=== PATIENT | male | born 1930 | race Caucasian/White ===

== ENCOUNTER 2016-11-24 19:47 | Inpatient (IN) | payer MEDICARE, MEDICAID ==
[~2016-11-24] VITALS: Ht 157.5 cm; Wt 54.9 kg
--- NOTE | 2016-11-24 20:09 | NUR ---
Pt brought in by van from facility for medical clearance and psych evaluation with possible admission to MHU. Pt calm and cooperative, answering questions appropriately at this time, following simple comands. No obvious signs of distress at this time. Pt resting in position of comfort for self. Awaiting further eval.
--- NOTE | 2016-11-24 20:20 | NUR ---
Dr. Temple at bedside with frequency checker
[2016-11-24 20:40] LABS: BASOPHILS # (AUTO) 0.3 K/uL (0.0-8.0); BASOPHILS % (AUTO) 1.8 % (0.0-2.0); EOSINOPHILS # (AUTO) 0.2 K/uL (0.0-0.7); EOSINOPHILS % (AUTO) 1.1 % (0.0-7.0); HEMATOCRIT 34.3 % (40-50); HEMOGLOBIN 11.3 G/DL (14.0-18.0); LYMPHOCYTES # (AUTO) 2.3 K/UL (0.8-4.8); LYMPHOCYTES % (AUTO) 14.1 % (20.5-51.5); MEAN CORPUSCULAR HEMOGLOBIN 28.5 UUG (27.0-31.0); MEAN CORPUSCULAR HGB CONC 33 g/dL (32.0-37.0); MEAN CORPUSCULAR VOLUME 86.2 FL (82.0-92.0); MONOCYTES # (AUTO) 0.9 K/UL (0.1-1.30); MONOCYTES % (AUTO) 5.2 % (0.0-11.0); NEUTROPHILS # (AUTO) 12.9 K/UL (1.8-8.9); NEUTROPHILS % (AUTO) 77.8 % (38.5-71.5); PLATELET COUNT (AUTO) 272 K/UL (150-450); RED BLOOD CELL COUNT(AUTO) 3.97 MIL/UL (4.7-6.1); WHITE BLOOD COUNT (AUTO) 16.6 K/UL (4.0-11.2)
[2016-11-24 20:41] LABS: *BILIRUBIN,URIN NEGATIVE (NEGATIVE); *BLOOD, URINE Trace-intact (NEGATIVE); *CLARITY,URINE CLEAR (CLEAR); *COLOR,URINE YELLOW (YELLOW); *KETONES,URINE NEGATIVE (NEGATIVE); *PROTEIN,URINE 1+ (NEGATIVE); *UROBILINOGEN,URINE 0.2 E.U./dl (NORMAL); LEUKOCYTE ESTERASE ,URINE NEGATIVE (NEGATIVE); NITRITE, URINE NEGATIVE (NEGATIVE); PH,URINE 6.5 (5.0-8.0)
[2016-11-24 20:44] LABS: UGLUCOSE 2+ (NEGATIVE)
[2016-11-24 20:48] LABS: BACTERIA,URINE FEW /HPF (NONE SEEN); CARBON DIOXIDE 28 mmol/L (21-32); CHLORIDE 103 mmol/L (98-107); POTASSIUM 4.9 mmol/L (3.5-5.1); RBC,URINE 0-3 /HPF (0-3); SQUAMOUS EPITHELIAL CELL,UR FEW /HPF (NONE SEEN); UREA NITROGEN, BLOOD 28 mg/dL (7-18); WBC,URINE 0-3 /HPF (0-3)
[2016-11-24] MEDS ORDERED: ACET325C PO (20:49)
[2016-11-24] MEDS ORDERED: FINA5TAB11 PO (20:49)
[2016-11-24] MEDS ORDERED: METF500T4 PO (20:49)
[2016-11-24] MEDS ORDERED: GLIP5TAB3 PO (20:49)
[2016-11-24] MEDS ORDERED: DEXT15DR6 OP (20:49)
[2016-11-24] MEDS ORDERED: MIRT15TA7 PO (20:49)
[2016-11-24] MEDS ORDERED: CARV3.122 PO (20:49)
[2016-11-24] MEDS ORDERED: BISA10SU12 RC (20:49)
[2016-11-24] MEDS ORDERED: DONE5TAB34 PO (20:49)
[2016-11-24] MEDS ORDERED: SENN-167 PO (20:49)
[2016-11-24] MEDS ORDERED: [UNRECOGNIZED DRUG - CODE] PO (20:49)
[2016-11-24] MEDS ORDERED: LISI-603 PO (20:49)
[2016-11-24] MEDS ORDERED: ASPI81TA31 PO (20:49)
[2016-11-24] MEDS ORDERED: BLOO-360 IN (20:49)
[2016-11-24] MEDS ORDERED: ATOR40TA PO (20:49)
[2016-11-24] MEDS ORDERED: MAGN400O6 PO (20:49)
[2016-11-24 20:52] LABS: GLUCOSE 375 mg/dL (74-106)
[2016-11-24 20:56] LABS: ETHANOL < 3 MG/DL (0-0)
[2016-11-24 20:57] LABS: *AMPHETAMINE, URINE NEGATIVE (NEGATIVE); *BARBITURATE, URINE NEGATIVE (NEGATIVE); *CANNABINOID, URINE NEGATIVE (NEGATIVE); *COCCAINE, URINE NEGATIVE (NEGATIVE); *OPIATE, URINE NEGATIVE (NEGATIVE); *PHENCYCLIDINE SCREEN,URINE NEGATIVE (NEGATIVE)
[2016-11-24] MEDS ORDERED: IV NORMAL SALINE 500 ML IV ONE (20:57)
[2016-11-24] MEDS ORDERED: INSULIN REGULAR, HUMAN 1,000 UNITS/10 ML VIAL IV ONE (21:00)
[2016-11-24 21:06] LABS: ACETAMINOPHEN < 2.0 ug/mL (10-30); ALANINE AMINOTRANSFERASE 17 U/L (16-63); ALKALINE PHOSPHATASE 81 U/L (50-136); ASPARTATE AMINOTRANSFERASE 17 U/L (15-37); BILIRUBIN,DIRECT 0.1 mg/dL (0.0-0.2); BILIRUBIN,TOTAL 0.2 mg/dL (0.2-1.0); TOTAL PROTEIN, SERUM 7.5 g/dL (6.4-8.2)
[2016-11-24 21:08] LABS: THYROID STIMULATING HORMONE 2.567 mIU/mL (0.358-3.740)
[2016-11-24] MEDS ORDERED: INSULIN REGULAR, HUMAN 300 UNIT/3 ML VIAL ONE (21:23)
--- NOTE | 2016-11-24 21:24 | NUR ---
Pt remains calm and cooperative, no complaints at this time. IV established. Pt medicated for elevated blood sugar, will monitor for effects of medication. Fluid bolus infusing freely to gravity.
--- NOTE | 2016-11-24 22:00 | NUR ---
Nolan, crisis team water main inspector at bedside with method consultant.
--- NOTE | 2016-11-24 22:40 | NUR ---
Pt placed on 5150 for gravely disabled, admission pending to MHU
--- NOTE | 2016-11-24 23:43 | NUR ---
Report given to VANESSA Alfaro. Pt given 1 amp dextrose for low blood sugar. Will monitor for effects of medication,.
[2016-11-24] MEDS ORDERED: DEXTROSE 50% 50 ML DISP.SYRIN IV ONE (23:45)
[2016-11-24] MEDS ORDERED: DEXTROSE 50% 50 ML DISP.SYRIN ONE (23:47)
--- NOTE | 2016-11-25 00:10 | NUR ---
Blood sugar improved. VANESSA Alfaro called and updated. Preparing to transfer pt to the floor. IV dc'd, catheter intact, drsg applied. No problems noted to site.
[2016-11-25] MEDS ORDERED: ACETAMINOPHEN 325 MG TABLET PO PRN (00:30)
[2016-11-25] MEDS ORDERED: MAGNESIUM HYDROXIDE 30 ML LIQUID UDC PO PRN (00:30)
[2016-11-25] MEDS ORDERED: MAG HYDROX/AL HYDROX/SIMETH 30 ML LIQUID UDC PO PRN (00:30)
[2016-11-25] MEDS ORDERED: ZOLPIDEM 5 MG TABLET PO PRN (00:30)
[2016-11-25] MEDS ORDERED: LORAZEPAM 1 MG TABLET PO PRN (00:30)
--- NOTE | 2016-11-25 01:56 | NUR ---
At approx 0045, Admitted 86 years old male to [facility] MHU on a 5150 hold due to GD. Patient is form [facility]. per staff, patient was noted with increased depression, isolation and attempts to elope the facility. On interview, patient denies depression, isolation or attempts to elope facility. He stated that he likes where he lives except for the food, which has no taste, according to patient. Hold started yesterday at 2235 and will end on 11/27/16 at 2235. Patient was calm, and cooperative at time of admission and able to sign admission papers. Pt was noted having difficulty hearing and some difficulty seeing; however, he denies wearing glasses or hearing aids. Pt's skin was warm, dry and intact.
[2016-11-25 03:21] VITALS: BP 141/67
--- NOTE | 2016-11-25 06:40 | NUR ---
PATIENT SLEPT FOR APPROX 2HRS THROUGH THE NIGHT. HIS BLOOD GLUCOSE IS 162 THIS MORNING . WILL CONTINUE TO MONITOR.
[2016-11-25 07:30] VITALS: BP 124/73
[2016-11-25] MEDS ORDERED: INFLUENZA VACCINE 2017-2018 0.5 ML DISP.SYRIN IM ONE (10:00)
--- NOTE | 2016-11-25 10:00 | NUR ---
PT HAS BEEN IN BED SLEEPING ALL MORNING, DIFFICULT TO AROUSE BUT IS RESPONSIVE. WILL CONTINUE TO MONITOR.
[2016-11-25] MEDS ORDERED: INSULIN REGULAR, HUMAN 300 UNIT/3 ML VIAL SQ PRN (10:30)
[2016-11-25] MEDS ORDERED: ASPIRIN 81 MG TAB.CHEW PO SCH (10:30)
[2016-11-25] MEDS ORDERED: BISACODYL 10 MG SUPP.RECT RC PRN (10:30)
[2016-11-25] MEDS ORDERED: DEXTROSE 50% 50 ML DISP.SYRIN IV PRN (10:30)
[2016-11-25] MEDS ORDERED: POLYVINYL ALCOHOL OPHT DROPS 15 ML BOTTLE EACHEYE PRN (10:45)
[2016-11-25] MEDS ORDERED: MULTIVIT, IRON, MIN NO. 8, FA TABLET PO SCH (10:45)
[2016-11-25] MEDS ORDERED: BLOOD SUGAR DIAGNOSTIC 1 EACH STRIP VI SCH (11:30)
[2016-11-25] MEDS ORDERED: METFORMIN HCL 500 MG TABLET PO SCH (12:00)
--- NOTE | 2016-11-25 13:00 | NUR ---
PT CONTINUES TO BE DROWSY, DIFFICULT TO AROUSE. REFUSING TO EAT OR TAKE MEDS. BG 348. CXR SHOWS DIFFUSE INTERSTITIAL PROMINENCE. SPOKE WITH A [place] ADMISSIONS ADVISOR, SHE WOULD LIKE PT ADMITTED TO [facility] FOR PNA, HYPERGLYCEMIA, AND AMS. SPOKE WITH DR VASQUEZ, DR VASQUEZ STATES D/C PT TO MED SURG. NOTIFIED TAO DIESEL ENGINE ERECTOR OF NEED TO TRANSFER. BLANCA (CHARGE NURES FROM NH) STATES PT CAN GO TO ROOM 222 WHEN THEY FIND AN AVAILABLE 1:1
[2016-11-25 15:25] VITALS: BP 158/75
--- NOTE | 2016-11-25 15:45 | NUR ---
REPORT GIVEN TO ROCK. PT GOING TO ROOM 222. PT DISCHARGED WITH EXIT CARE AND TMS AND ORIGINAL 72 HOUR HOLD AND ADVISEMENT. BROUGHT UPSTAIRS BY 1:1. ALL BELONGINGS INCLUDING DENTURES WERE SENT WITH PT TO MED SURG FLOOR. DR VASQUEZ AND A [place] COMPLAINT EVALUATION SUPERVISOR WILL CONTINUE TO SEE THE PT UPSTAIRS.
[2016-11-25] MEDS ORDERED: glipiZIDE 5 MG TABLET PO SCH (16:30)
[2016-11-25] MEDS ORDERED: POLY15DR27 EACHEYE (17:59)
[2016-11-25] MEDS ORDERED: SENN-18 PO (17:59)
[2016-11-25] MEDS ORDERED: CARVEDILOL 3.125 MG TABLET PO SCH (18:00)
[2016-11-25] MEDS ORDERED: FINASTERIDE 5 MG TABLET PO SCH (21:00)
[2016-11-25] MEDS ORDERED: ATORVASTATIN 40 MG TABLET PO SCH (21:00)
[2016-11-26] MEDS ORDERED: SENNOSIDES 1 TABLET PO SCH (09:00)
[2016-11-26] MEDS ORDERED: MULTIVITAMINS W MINERALS PO SCH (09:00)
[2016-11-26] MEDS ORDERED: LISINOPRIL 20 MG TABLET PO SCH (09:00)
== END 2016-11-25 16:15 | disposition short-term general hospital (02) | DRG 881 ==
LOC: ER 19:48 → GPS 23:05
PROVIDERS: ADMIT Psychiatry & Neurology Psychiatry; ATTEND Internal Medicine
DX: F32.9 Major depressive disorder, single episode, unspecified (principal); E11.65 Type 2 diabetes mellitus with hyperglycemia; G93.40 Encephalopathy, unspecified; E44.0 Moderate protein-calorie malnutrition; J18.9 Pneumonia, unspecified organism; F03.91 Unspecified dementia, unspecified severity, with behavioral disturbance; Z91.83 Wandering in diseases classified elsewhere; Z79.899 Other long term (current) drug therapy; Z79.82 Long term (current) use of aspirin; J06.9 Acute upper respiratory infection, unspecified; E78.00 Pure hypercholesterolemia, unspecified; Z79.84 Long term (current) use of oral hypoglycemic drugs; I10 Essential (primary) hypertension; N40.0 Benign prostatic hyperplasia without lower urinary tract symptoms; M62.81 Muscle weakness (generalized)
CPT/HCPCS: 36415; 70030-TC; 71010; 80307; 84443; 85025; 93005; A4663; G0480; G0480-TC; J1815; J3490; J7040

== ENCOUNTER 2016-11-25 16:38 | Inpatient (IN) | payer MEDICARE, MEDICAID ==
[~2016-11-25] VITALS: Ht 172.7 cm; Wt 55.9 kg
[2016-11-25 16:10] VITALS: BP 138/60
--- NOTE | 2016-11-25 16:10 | NUR ---
Arrival to telemetry unit under the care of Doctor Stafford for PNA, AMS, and hyperglycemia. Patient IV site placed. Vital signs taken. Medication reconciliation pending MD review. Patient diet order and vaccines for flu and pneumonia desired by daughter of patient.
[~2016-11-25 16:38] MED LIST: ACET325C PO; ASPI81TA31 PO; ATOR40TA PO; BISA10SU12 RC; BLOO-360 IN; CARV3.122 PO; DEXT15DR6 OP; DONE5TAB34 PO; FINA5TAB11 PO; GLIP5TAB3 PO; LISI-603 PO; MAGN400O6 PO; METF500T4 PO; MIRT15TA7 PO; SENN-167 PO; [UNRECOGNIZED DRUG - CODE] PO
[2016-11-25] MEDS ORDERED: SENN-18 PO (17:59)
[2016-11-25] MEDS ORDERED: POLY15DR27 EACHEYE (17:59)
[2016-11-25] MEDS ORDERED: INSULIN REGULAR, HUMAN 300 UNITS/3 ML VIAL SQ PRN (18:15)
[2016-11-25] MEDS ORDERED: hydrALAZINE HCL 25 MG TABLET PO PRN (18:15)
[2016-11-25] MEDS ORDERED: MORPHINE SULFATE 2 MG/1 ML DISP.SYRIN IV PRN (18:15)
[2016-11-25] MEDS ORDERED: ALBUTEROL SULFATE 1.25 MG/3 ML NEBU NEB PRN (18:15)
[2016-11-25] MEDS: BLOOD SUGAR DIAGNOSTIC 1 EACH STRIP VI SCH ×2 (18:15→21:01)
[2016-11-25] MEDS ORDERED: MAGNESIUM HYDROXIDE 30 ML LIQUID UDC PO PRN (18:15)
[2016-11-25] MEDS ORDERED: INSULIN REGULAR, HUMAN 300 UNIT/3 ML VIAL SQ PRN (18:15)
[2016-11-25] MEDS ORDERED: ACETAMINOPHEN 325 MG TABLET PO PRN (18:15)
[2016-11-25] MEDS ORDERED: POLYVINYL ALCOHOL OPHT DROPS 15 ML BOTTLE EACHEYE SCH (18:15)
[2016-11-25] MEDS ORDERED: DEXTROSE 50% 50 ML DISP.SYRIN IV PRN (18:15)
[2016-11-25] MEDS ORDERED: BISACODYL 10 MG SUPP.RECT RC PRN (18:15)
[2016-11-25] MEDS ORDERED: ONDANSETRON 4 MG/2 ML VIAL IV PRN (18:15)
--- NOTE | 2016-11-25 19:15 | NUR ---
CLINICAL PHARMACY NOTE:VANCOMYCIN Request for vancomycin dosing on 86 y/o male 5'2" 121 lbs for pneumonia TEMP 97.1 LABS FROM 11/24 BUN 28 Scr 1.0 WBC 16.6 also on Zosyn Give vancomycin 1gm ivpb tonight will draw random vancomycin level tomorrow afternoon. Dosing to follow.
--- NOTE | 2016-11-25 19:25 | NUR ---
Handoff to night nurse at this time. Endorsed sleeping medication request per family, MRSA swab, and vaccines.
[2016-11-25] MEDS ORDERED: VANCOMYCIN IV 1 G in PREMIXED 0 EACH IV ONE (20:00)
[2016-11-25] MEDS: FINASTERIDE 5 MG TABLET PO SCH (20:45)
[2016-11-25] MEDS: DOCUSATE SODIUM 100 MG CAPSULE PO SCH (20:45)
[2016-11-25] MEDS: ATORVASTATIN 40 MG TABLET PO SCH (20:45)
[2016-11-25] MEDS: CARVEDILOL 3.125 MG TABLET PO SCH (20:47)
[2016-11-25] MEDS ORDERED: DOCUSATE SODIUM 250 MG CAPSULE PO SCH (21:00)
[2016-11-25] MEDS: BENZOCAINE/MENTH/CETYLPYRD LOZENGE MM PRN (21:44)
[2016-11-25] MEDS: ZOLPIDEM 5 MG TABLET PO PRN (21:45)
[2016-11-25] MEDS ORDERED: BENZOCAINE/MENTH/CETYLPYRD LOZENGE MM ONE (21:58)
[2016-11-25] MEDS ORDERED: ZOLPIDEM 5 MG TABLET ONE (21:59)
[2016-11-26 04:00] VITALS: BP 122/36
[2016-11-26] MEDS: PANTOPRAZOLE SODIUM 40 MG TABLET.DR PO SCH (05:44)
[2016-11-26] MEDS: PIPERACILLIN/TAZOBACTAM/D5W 3.375 G in PREMIXED 1 EACH IV SCH ×5 (05:44→21:19)
[2016-11-26] MEDS: BLOOD SUGAR DIAGNOSTIC 1 EACH STRIP VI SCH ×4 (05:57→21:11)
[2016-11-26 06:43] LABS: IRON, SERUM 26 ug/dL (50-175)
[2016-11-26 07:03] LABS: ALANINE AMINOTRANSFERASE 18 U/L (16-63); ALKALINE PHOSPHATASE 76 U/L (50-136); ASPARTATE AMINOTRANSFERASE 22 U/L (15-37); BILIRUBIN,TOTAL 0.3 mg/dL (0.2-1.0); CARBON DIOXIDE 24 mmol/L (21-32); CHLORIDE 102 mmol/L (98-107); CHOLESTEROL 104 mg/dL (<200); HDL CHOLESTEROL 59 mg/dL (40-60); POTASSIUM 4.5 mmol/L (3.5-5.1); TOTAL PROTEIN, SERUM 6.9 g/dL (6.4-8.2); TRIGLYCERIDES 46 MG/DL (30-150); UREA NITROGEN, BLOOD 15 mg/dL (7-18)
[2016-11-26 07:09] LABS: BASOPHILS % (AUTO) 0.2 % (0.0-2.0); EOSINOPHILS # (AUTO) 0.2 K/uL (0.0-0.7); EOSINOPHILS % (AUTO) 1.6 % (0.0-7.0); HEMATOCRIT 32.3 % (40-50); HEMOGLOBIN 10.7 G/DL (14.0-18.0); LYMPHOCYTES # (AUTO) 2.1 K/UL (0.8-4.8); LYMPHOCYTES % (AUTO) 16.2 % (20.5-51.5); MEAN CORPUSCULAR HEMOGLOBIN 28.4 UUG (27.0-31.0); MEAN CORPUSCULAR HGB CONC 33 g/dL (32.0-37.0); MEAN CORPUSCULAR VOLUME 86.1 FL (82.0-92.0); MONOCYTES # (AUTO) 0.6 K/UL (0.1-1.30); MONOCYTES % (AUTO) 4.6 % (0.0-11.0); NEUTROPHILS % (AUTO) 77.4 % (38.5-71.5); PLATELET COUNT (AUTO) 251 K/UL (150-450); RED BLOOD CELL COUNT(AUTO) 3.76 MIL/UL (4.7-6.1); WHITE BLOOD COUNT (AUTO) 12.9 K/UL (4.0-11.2)
[2016-11-26 07:32] LABS: GLUCOSE 360 mg/dL (74-106)
--- NOTE | 2016-11-26 07:33 | NUR ---
RECEIVED FROM LAB BLOOD SUGAR RESULT IS 360 AND THE BEDSIDE SIDE GLUCOSE EARLIER WAS 305 SO PATIENT WAS COVERED INSTEAD FOR THE 360 WITH NO S/S OF HYPERGLYCEMIC REACTIONS AT THIS TIME.
[2016-11-26] MEDS: LISINOPRIL 20 MG TABLET PO SCH (08:34)
[2016-11-26] MEDS: SENNOSIDES 1 TABLET PO SCH (08:34)
[2016-11-26] MEDS: MULTIVIT, IRON, MIN NO. 8, FA TABLET PO SCH (08:34)
[2016-11-26] MEDS: CARVEDILOL 3.125 MG TABLET PO SCH ×2 (08:35→21:04)
[2016-11-26] MEDS ORDERED: ASPIRIN 81 MG TAB.CHEW PO SCH (09:00)
[2016-11-26] MEDS ORDERED: MULTIVITAMINS W MINERALS PO SCH (09:00)
[2016-11-26] MEDS ORDERED: glipiZIDE 5 MG TABLET PO SCH (09:30)
[2016-11-26 10:38] VITALS: BP 113/62
[2016-11-26] MEDS: FERROUS SULFATE 325 MG TABEC PO SCH (10:45)
--- NOTE | 2016-11-26 11:47 | NUR ---
PATIENT REQUESTED TO HAVE LUNCH STATED THAT HE WAS VERY HUNGRY SO I TOLD HIM TO WAIT FOR ME TO TAKE HIS BLOOD SUGAR FIRST BEFORE HE EATS SO BLOOD SUGAR CHECKED AND ITS 34 THEN RECHECKED AND ITS 29 THEN 26 CALLED THE DOCTOR AND STAT LAB DRAW DONE PER PROTOCOL.PATIENT REMAIN ALERT AND AWARE BUT SOMEWHAT DIAPHORETIC
--- NOTE | 2016-11-26 11:49 | NUR ---
DR TAYLOR WAS NOTIFIED OF THE CRITICAL GLUCOSE LEVEL AND HE STATED OKAY CONTINUE THE PROTOCOL
--- NOTE | 2016-11-26 11:55 | NUR ---
STAT BLOOD GLUCOSE CHECKED AND PATIENT GIVEN CRACKERS AND MILK AND HE TOLERATED THEM WELL AWAITING FOR THE RESULT OF THE STAT GLUCOSE
[2016-11-26] MEDS ORDERED: ENOXAPARIN SODIUM 40 MG/0.4 ML DISP.SYRIN SQ SCH (12:00)
--- NOTE | 2016-11-26 12:19 | NUR ---
RESULT OF THE STAT GLUCOSE RECEIVED FROM THE LAB ITS 35 D50 GIVEN IVP ORDERED MADE COMFORTABLE AND WILL CONTINUE TO OBSERVE
--- NOTE | 2016-11-26 12:37 | NUR ---
BLOOD SUGAR RECHECKED AT THIS TIME AND ITS 237
[2016-11-26] MEDS ORDERED: DEXTROSE 50% 50 ML DISP.SYRIN IV PRN ×2 (12:45→17:00)
[2016-11-26] MEDS ORDERED: ALBUTEROL SULFATE 2.5 MG/3 ML NEBU NEB PRN (12:45)
[2016-11-26] MEDS ORDERED: BLOOD SUGAR DIAGNOSTIC 1 EACH STRIP VI SCH (12:45)
[2016-11-26] MEDS ORDERED: IPRATROPIUM BROMIDE 0.5 MG/2.5 ML NEBU NEB PRN (12:45)
[2016-11-26] MEDS: ALBUTEROL SULFATE 2.5 MG/3 ML NEBU NEB SCH ×2 (13:30→20:00)
[2016-11-26] MEDS: IPRATROPIUM BROMIDE 0.5 MG/2.5 ML NEBU NEB SCH ×2 (13:30→20:00)
[2016-11-26 15:30] VITALS: BP 156/68
--- NOTE | 2016-11-26 15:53 | NUR ---
CLINICAL PHARMACY NOTE:VANCOMYCIN Subjective: Request for vancomycin dosing on 86 y/o male 5'2" 121 lbs for pneumonia Objective: TEMP 97.5 BUN 15 Scr 1.0 WBC 12.9 Random level: pending today at 1600 Assessment/Plan Random level pending for today. One dose of 1gm vanco was given yesterday evening. Will check random later today and adjust as appropriate. Will follow Addendum: 11/26/16 at 1729 by SHAYLA GREENE ADM LEVEL WAS 6.4. WILL START 750MG Q23HR FOR EST TROUGH OF 15.3. WILL ORDER TROUGH BEFORE 4TH SCHEDULED DOSE. WILL FOLLOW
--- NOTE | 2016-11-26 16:57 | NUR ---
PATIENTS BLOOD SUGAR AT THIS TIME IS 378 AND PATIENT HAS NO INSULIN COVERAGE CALLED [facility] REAL ESTATE RECRUITER SPOKE TO HER WITH NEW ORDERS AND SHE STATED TO CHANGE THE ACCUCHECK TO AC AND HS WITH MILD COVERAGE AND NOTED.
[2016-11-26] MEDS: INSULIN REGULAR, HUMAN 300 UNIT/3 ML VIAL SQ PRN ×2 (17:16→21:12)
[2016-11-26] MEDS: BENZOCAINE/MENTH/CETYLPYRD LOZENGE MM PRN (17:34)
[2016-11-26] MEDS: VANCOMYCIN IV 750 MG in IV DEXTROSE 5% 250 ML IV SCH (17:43)
--- NOTE | 2016-11-26 18:05 | NUR ---
IV VANCOMICIN IS IN PROGRESS ORDERED WITH NO ADVERSE OR ALLERGIC REACTIONS AT THIS TIME.PATIENTS DAUGHTER IS AT THE BEDSIDE AND AWARE OF THE LOW BLOOD SUGARS.
[2016-11-26 19:10] VITALS: BP 141/63
--- NOTE | 2016-11-26 19:30 | NUR ---
Received patient in bed, appears sleeping. No s/s of pain/discomforts noted at this time. 1:1 sitter at bedside. Safety measures and fall precaution maintained.
[2016-11-26] MEDS: DOCUSATE SODIUM 100 MG CAPSULE PO SCH (21:03)
[2016-11-26] MEDS: FINASTERIDE 5 MG TABLET PO SCH (21:03)
[2016-11-26] MEDS: ZOLPIDEM 5 MG TABLET PO PRN (21:04)
[2016-11-26] MEDS: ATORVASTATIN 40 MG TABLET PO SCH (21:04)
[2016-11-27 05:30] VITALS: BP 133/61
[2016-11-27] MEDS: PIPERACILLIN/TAZOBACTAM/D5W 3.375 G in PREMIXED 1 EACH IV SCH ×3 (05:40→21:07)
[2016-11-27] MEDS: PANTOPRAZOLE SODIUM 40 MG TABLET.DR PO SCH (06:00)
[2016-11-27] MEDS: BLOOD SUGAR DIAGNOSTIC 1 EACH STRIP VI SCH ×4 (06:04→20:24)
[2016-11-27 06:18] LABS: BASOPHILS % (AUTO) 0.2 % (0.0-2.0); EOSINOPHILS # (AUTO) 0.2 K/uL (0.0-0.7); EOSINOPHILS % (AUTO) 1.4 % (0.0-7.0); HEMATOCRIT 31.9 % (40-50); HEMOGLOBIN 10.7 G/DL (14.0-18.0); LYMPHOCYTES # (AUTO) 2.6 K/UL (0.8-4.8); LYMPHOCYTES % (AUTO) 16.7 % (20.5-51.5); MEAN CORPUSCULAR HEMOGLOBIN 28.6 UUG (27.0-31.0); MEAN CORPUSCULAR HGB CONC 34 g/dL (32.0-37.0); MONOCYTES # (AUTO) 0.8 K/UL (0.1-1.30); MONOCYTES % (AUTO) 5.2 % (0.0-11.0); NEUTROPHILS # (AUTO) 11.7 K/UL (1.8-8.9); NEUTROPHILS % (AUTO) 76.5 % (38.5-71.5); PLATELET COUNT (AUTO) 259 K/UL (150-450); RED BLOOD CELL COUNT(AUTO) 3.75 MIL/UL (4.7-6.1); WHITE BLOOD COUNT (AUTO) 15.3 K/UL (4.0-11.2)
--- NOTE | 2016-11-27 06:42 | NUR ---
Slept well VS stable. No s/s of hypo/hyperglycemia noted. No pain/discomforts presented all night. All needs attended and met. No significant event reported. Continue current plan of care.
[2016-11-27 06:45] LABS: ALANINE AMINOTRANSFERASE 14 U/L (16-63); ALKALINE PHOSPHATASE 66 U/L (50-136); ASPARTATE AMINOTRANSFERASE 15 U/L (15-37); BILIRUBIN,TOTAL 0.4 mg/dL (0.2-1.0); CARBON DIOXIDE 26 mmol/L (21-32); CHLORIDE 101 mmol/L (98-107); CREATININE 1.2 mg/dL (0.6-1.3); GLUCOSE 243 mg/dL (74-106); MAGNESIUM 1.8 mg/dL (1.8-2.4); PHOSPHOROUS 3.5 mg/dL (2.5-4.9); POTASSIUM 4.6 mmol/L (3.5-5.1); TOTAL PROTEIN, SERUM 6.6 g/dL (6.4-8.2); UREA NITROGEN, BLOOD 18 mg/dL (7-18)
[2016-11-27 07:26] VITALS: BP 140/59
--- NOTE | 2016-11-27 07:30 | NUR ---
AWAKE ALERT AND ORIENTED NO S/S OF PAIN OR DISCOMFORTS AT THIS TIME.NO ADVERSE OR ALLERGIC REACTIONS FROM ATB ORDERED.REMAIN ON ROOM AIR WITH NO SHORTNESS OF BREATH HE REMAIN ON ONE ON ONE SITTER WITH NO AGGRESSIVE BEHAVIOR NOT IN DISTRESS AT THIS TIME.
[2016-11-27] MEDS: IPRATROPIUM BROMIDE 0.5 MG/2.5 ML NEBU NEB SCH ×3 (07:35→18:53)
[2016-11-27] MEDS: ALBUTEROL SULFATE 2.5 MG/3 ML NEBU NEB SCH ×3 (07:35→18:54)
[2016-11-27] MEDS: MULTIVIT, IRON, MIN NO. 8, FA TABLET PO SCH (08:18)
[2016-11-27] MEDS: ASPIRIN EC 81 MG TABLET.DR PO SCH (08:18)
[2016-11-27] MEDS: FERROUS SULFATE 325 MG TABEC PO SCH (08:19)
[2016-11-27] MEDS: SENNOSIDES 1 TABLET PO SCH (08:19)
[2016-11-27] MEDS: LISINOPRIL 20 MG TABLET PO SCH (08:20)
[2016-11-27] MEDS: CARVEDILOL 3.125 MG TABLET PO SCH ×2 (08:20→20:17)
[2016-11-27] MEDS: INSULIN REGULAR, HUMAN 300 UNIT/3 ML VIAL SQ PRN ×4 (08:25→22:01)
[2016-11-27 11:20] VITALS: BP 147/72
--- NOTE | 2016-11-27 11:22 | NUR ---
CLINICAL PHARMACY NOTE:VANCOMYCIN Subjective: Request for vancomycin dosing on 86 y/o male 5'2" 121 lbs for pneumonia Objective: TEMP 98.4 BUN 18 Scr 1.2 WBC 15.3 Assessment/Plan Continue vancomycin 750mg ivpb q23h scr increased to 1.2 estimate trough 18. Will order trough level prior to 4th dose. If scr continues to increase will order vancomycin level sooner
--- NOTE | 2016-11-27 13:30 | NUR ---
UP AND AMBULATING WITH THE FRONT WHEEL WALKER WITH STAND BY ASSIST ALERT AND AWARE WITH LANGUAGE DIFFICULTY BUT SERVICE CORRESPONDENT USED FOR COMMUNICATION NO S/S OF HYPO/HYPERGLYCEMIC REACTIONS AT THIS TIME.MADE COMFORTABLE.WILL CONTINUE TO OBSERVE.
[2016-11-27 15:07] VITALS: BP 121/51
[2016-11-27] MEDS: BENZOCAINE/MENTH/CETYLPYRD LOZENGE MM PRN (15:30)
[2016-11-27] MEDS: VANCOMYCIN IV 750 MG in IV DEXTROSE 5% 250 ML IV SCH (16:06)
--- NOTE | 2016-11-27 18:00 | NUR ---
PATIENT REMAIN ON IV ANTIBIOTICS ORDERED WITH NO ADVERSE OR ALLERGIC REACTIONS AT THIS TIME.PATIENT CONTINUES TO BE COMPLIANT WITH MEDICATIONS HHN ORDERED NOT IN DISTRESS AT THIS TIME
--- NOTE | 2016-11-27 19:48 | NUR ---
RECEIVED SHIFT REPORT FROM PREVIOUS SHIFT NURSE. PATIENT INTRODUCTION PROVIDED. BOARD CHANGED. PATIENT WAS DC/ED OFF 1:1 OBSERVATION AND NOW MED-SURG. PATIENT IS CITIZEN OF [place] SPEAKING, HAD RN HEMATOLOGY HELP TRANSLATE. WILL MONITOR BLOOD SUGAR. PATIENT IN STABLE CONDITION, NO S/S DISTRESS. PATIENT APPEARS COMFORTABLE IN BED WITH NO COMPLAINTS OF PAIN. BED IN LOCKED/LOW POSITION WITH SIDE RAILS UP X3. SAFETY AND COMFORT WILL BE PROVIDED TO PATIENT THROUGHOUT SHIFT.
[2016-11-27] MEDS: DOCUSATE SODIUM 100 MG CAPSULE PO SCH (20:13)
[2016-11-27] MEDS: ATORVASTATIN 40 MG TABLET PO SCH (20:13)
[2016-11-27] MEDS: FINASTERIDE 5 MG TABLET PO SCH (21:04)
[2016-11-27] MEDS: LACTOBACILLUS RHAMNOSUS GG 1 EACH CAPSULE PO SCH (21:04)
[2016-11-27] MEDS: ZOLPIDEM 5 MG TABLET PO PRN (21:22)
[2016-11-27 21:28] VITALS: BP 138/58
--- NOTE | 2016-11-27 21:30 | NUR ---
PATIENT'S BLOOD SUGAR 168. PATIENT REFUSED INSULIN VERBALIZING THAT HE IS AFRAID HIS BLOOD SUGAR IS GOING TO DROP TOO LOW. EXPLAINED TO HIM IMPORTANCE OF IT BUT STILL REFUSED.
[2016-11-28 04:00] VITALS: BP 146/64
[2016-11-28] MEDS: PIPERACILLIN/TAZOBACTAM/D5W 3.375 G in PREMIXED 1 EACH IV SCH ×2 (05:53→13:40)
[2016-11-28] MEDS: PANTOPRAZOLE SODIUM 40 MG TABLET.DR PO SCH (05:53)
--- NOTE | 2016-11-28 06:18 | NUR ---
PATIENT SLEPT WELL THROUGHOUT THE NIGHT. PATIENT IN STABLE CONDITION. NO S/S OF DISTRESS. VITAL SIGNS WNL. BED ALARM ON, LOCKED/LOW POSITION. FALL PRECAUTIONS IMPLEMENTED THROUGHOUT SHIFT. CALL LIGHT WITHIN REACH OF PATIENT. SAFETY AND COMFORT PROVIDED TO PATIENT.
[2016-11-28] MEDS: BLOOD SUGAR DIAGNOSTIC 1 EACH STRIP VI SCH ×2 (06:29→11:49)
[2016-11-28 07:52] LABS: ALANINE AMINOTRANSFERASE 14 U/L (16-63); ALKALINE PHOSPHATASE 58 U/L (50-136); ASPARTATE AMINOTRANSFERASE 14 U/L (15-37); BASOPHILS % (AUTO) 0.4 % (0.0-2.0); BILIRUBIN,TOTAL 0.4 mg/dL (0.2-1.0); CARBON DIOXIDE 25 mmol/L (21-32); CHLORIDE 103 mmol/L (98-107); EOSINOPHILS # (AUTO) 0.4 K/uL (0.0-0.7); EOSINOPHILS % (AUTO) 4.9 % (0.0-7.0); GLUCOSE 245 mg/dL (74-106); HEMATOCRIT 31.2 % (36.7-47.1); HEMOGLOBIN 10.5 g/dL (12.5-16.3); LYMPHOCYTES # (AUTO) 2.3 K/uL (20.0-40.0); LYMPHOCYTES % (AUTO) 26.6 % (20.5-51.5); MAGNESIUM 1.9 mg/dL (1.8-2.4); MEAN CORPUSCULAR HEMOGLOBIN 28.6 uug (23.8-33.4); MEAN CORPUSCULAR HGB CONC 34 g/dL (32.5-36.3); MEAN CORPUSCULAR VOLUME 84.9 fL (73.0-96.2); MONOCYTES # (AUTO) 0.8 K/uL (2.0-10.0); MONOCYTES % (AUTO) 9.2 % (0.0-11.0); NEUTROPHILS % (AUTO) 58.9 % (38.5-71.5); PHOSPHOROUS 3.5 mg/dL (2.5-4.9); PLATELET COUNT (AUTO) 238 K/uL (152-348); POTASSIUM 4.3 mmol/L (3.5-5.1); RED BLOOD CELL COUNT(AUTO) 3.67 MIL/uL (4.06-5.63); TOTAL PROTEIN, SERUM 6.5 g/dL (6.4-8.2); UREA NITROGEN, BLOOD 16 mg/dL (7-18)
[2016-11-28 07:54] LABS: WHITE BLOOD COUNT (AUTO) 8.5 K/uL (3.6-10.2)
--- NOTE | 2016-11-28 07:55 | NUR ---
PATIENT IS LAYING COMFORTABLY IN BED AWAKE ALERT AND ORIENTED BUT FORGETFUL AT TIMES.REMAIN ON IV ANTIBIOTICS ORDERED WITH NO ADVERSE OR ALLERGIC REACTIONS AT THIS TIME.NO SHORTNESS OF BREATH REMAIN ON HAND HELD NEBULIZER ORDERED MADE COMFORTABLE.
[2016-11-28] MEDS: INSULIN REGULAR, HUMAN 300 UNIT/3 ML VIAL SQ PRN ×2 (07:56→11:36)
[2016-11-28] MEDS: ASPIRIN EC 81 MG TABLET.DR PO SCH (08:00)
[2016-11-28] MEDS: FERROUS SULFATE 325 MG TABEC PO SCH (08:00)
[2016-11-28] MEDS: MULTIVIT, IRON, MIN NO. 8, FA TABLET PO SCH (08:00)
[2016-11-28] MEDS: SENNOSIDES 1 TABLET PO SCH (08:00)
[2016-11-28] MEDS: LACTOBACILLUS RHAMNOSUS GG 1 EACH CAPSULE PO SCH (08:00)
[2016-11-28] MEDS: LISINOPRIL 20 MG TABLET PO SCH (08:01)
[2016-11-28] MEDS: CARVEDILOL 3.125 MG TABLET PO SCH (08:01)
[2016-11-28] MEDS: IPRATROPIUM BROMIDE 0.5 MG/2.5 ML NEBU NEB SCH ×2 (08:38→15:00)
[2016-11-28] MEDS: ALBUTEROL SULFATE 2.5 MG/3 ML NEBU NEB SCH ×2 (08:38→14:59)
--- NOTE | 2016-11-28 11:48 | NUR ---
CLINICAL PHARMACY NOTE:VANCOMYCIN Subjective: continue vancomycin dosing on 86 y/o male 5'2" 121 lbs for pneumonia Objective: TEMP 97.7 BUN 16 Scr 1.1 WBC 8.5 Assessment/Plan Continue vancomycin 750mg ivpb q23h for today. Third dose is due today at 1500. Will order trough level prior to 4th dose (ordered for 11/29 at 1330). Will continue to follow up
[2016-11-28 11:55] VITALS: BP 158/79
[2016-11-28] MEDS ORDERED: LEVO750T21 PO (12:14)
[2016-11-28] MEDS ORDERED: PNEUMOCOCCAL 23-VAL P-SAC VAC 0.5 ML VIAL IM ONE (13:00)
[2016-11-28] MEDS ORDERED: INFLUENZA VACCINE 2017-2018 0.5 ML DISP.SYRIN IM ONE (13:00)
--- NOTE | 2016-11-28 15:00 | NUR ---
CALLED [facility] AND REPORT GIVEN TO CHERELLE FOR CONTINUING CARE PER CHERELLE PATIENT REFUSED FLU AND PNA SHOTS AT THE [facility] ALSO SPOKE WITH THE PATIENT HERE AND HE STATED DOES NOT LIKE TO TAKE VACCINES.LUIS REMOVED PATIENT PREPPED FOR DISCHARGE.
--- NOTE | 2016-11-28 15:30 | NUR ---
PATIENT DISCHARGED PICKED UP BY [facility] IN SATISFACTORY CONDITION WITH DISCHARGE INSTRUCTIONS AND ALL HIS PERSONAL BELONGINGS.
== END 2016-11-28 15:30 | DRG 177 ==
LOC: MED 16:38 → TELE 18:06 → MED 11-26 23:50
PROVIDERS: ADMIT Internal Medicine; ATTEND Internal Medicine
DX: J15.6 Pneumonia due to other Gram-negative bacteria (principal); G93.40 Encephalopathy, unspecified; E44.0 Moderate protein-calorie malnutrition; E11.649 Type 2 diabetes mellitus with hypoglycemia without coma; Z68.1 Body mass index [BMI] 19.9 or less, adult; F03.91 Unspecified dementia, unspecified severity, with behavioral disturbance; E11.65 Type 2 diabetes mellitus with hyperglycemia; D50.9 Iron deficiency anemia, unspecified; E78.5 Hyperlipidemia, unspecified; F32.9 Major depressive disorder, single episode, unspecified; I10 Essential (primary) hypertension; N40.0 Benign prostatic hyperplasia without lower urinary tract symptoms; Z87.891 Personal history of nicotine dependence; M62.81 Muscle weakness (generalized); Z79.84 Long term (current) use of oral hypoglycemic drugs; D72.829 Elevated white blood cell count, unspecified
CPT/HCPCS: 36415; 70030-TC; 83550; 83735; 84100; 85025; 90732; 93307; 94640; 94664; A4663; J1815; J2543; J3370; J3490; J3590; J7050; J7060

== ENCOUNTER 2017-08-31 12:12 | Inpatient (IN) | payer MEDICARE, OTHER ==
[~2017-08-31] VITALS: Ht 152.4 cm; Wt 63.0 kg
[~2017-08-31 12:12] MED LIST changes: -DONE5TAB34 PO; +LEVO750T21 PO; -MAGN400O6 PO; -METF500T4 PO; +METF500T6 PO; -MIRT15TA7 PO; +POLY15DR27 EACHEYE; -SENN-167 PO; +SENN-18 PO
[2017-08-31] MEDS ORDERED: SITA100T PO (13:09)
[2017-08-31] MEDS ORDERED: CARB15DR97 OP (13:09)
[2017-08-31] MEDS ORDERED: [UNRECOGNIZED DRUG - CODE] MC (13:09)
[2017-08-31] MEDS ORDERED: DOCU100C36 PO (13:09)
[2017-08-31] MEDS ORDERED: GLUC1KIT IJ (13:09)
[2017-08-31] MEDS ORDERED: INSU100I26 SQ (13:09)
[2017-08-31] MEDS ORDERED: ACET325T53 PO (13:09)
[2017-08-31] MEDS ORDERED: MAGN400O6 PO (13:09)
[2017-08-31] MEDS ORDERED: DONE5TAB34 PO (13:09)
[2017-08-31] MEDS ORDERED: SOLI5TAB2 PO (13:09)
[2017-08-31] MEDS ORDERED: MAGN400T40 PO (13:09)
[2017-08-31] MEDS ORDERED: ALBU2.5V38 IH (13:09)
[2017-08-31] MEDS ORDERED: LISI-603 PO (13:09)
[2017-08-31] MEDS ORDERED: SILO8CAP PO (13:09)
[2017-08-31] MEDS ORDERED: SENN-167 PO (13:09)
[2017-08-31] MEDS ORDERED: VITAMIN B12 PO (13:09)
[2017-08-31] MEDS ORDERED: CHOL400T PO (13:09)
[2017-08-31] MEDS ORDERED: DEXT237L PO (13:09)
[2017-08-31] MEDS ORDERED: MULT-213 PO (13:09)
[2017-08-31] MEDS ORDERED: BLOO-140 IN (13:09)
[2017-08-31] MEDS ORDERED: MELA3TAB PO (13:09)
[2017-08-31 13:13] LABS: BASOPHILS % (AUTO) 0.2 % (0.0-2.0); EOSINOPHILS # (AUTO) 0.3 K/uL (0.0-0.7); EOSINOPHILS % (AUTO) 3.1 % (0.0-7.0); HEMATOCRIT 30.7 % (36.7-47.1); HEMOGLOBIN 10.1 g/dL (12.5-16.3); LYMPHOCYTES # (AUTO) 2.1 K/uL (20.0-40.0); MEAN CORPUSCULAR HEMOGLOBIN 28.3 uug (23.8-33.4); MEAN CORPUSCULAR HGB CONC 33 g/dL (32.5-36.3); MEAN CORPUSCULAR VOLUME 85.7 fL (73.0-96.2); MONOCYTES # (AUTO) 0.7 K/uL (2.0-10.0); NEUTROPHILS # (AUTO) 5.7 K/uL (1.8-8.9); NEUTROPHILS % (AUTO) 64.7 % (38.5-71.5); PLATELET COUNT (AUTO) 223 K/uL (152-348); RED BLOOD CELL COUNT(AUTO) 3.58 MIL/uL (4.06-5.63); WHITE BLOOD COUNT (AUTO) 8.8 K/uL (3.6-10.2)
[2017-08-31 13:26] LABS: ALANINE AMINOTRANSFERASE 17 U/L (16-63); ALKALINE PHOSPHATASE 85 U/L (50-136); ASPARTATE AMINOTRANSFERASE 13 U/L (15-37); BILIRUBIN,DIRECT 0.1 mg/dL (0.0-0.2); BILIRUBIN,TOTAL 0.3 mg/dL (0.2-1.0); CARBON DIOXIDE 26 mmol/L (21-32); CHLORIDE 102 mmol/L (98-107); CREATININE 1.1 mg/dL (0.6-1.3); POTASSIUM 4.8 mmol/L (3.5-5.1); TOTAL PROTEIN, SERUM 7.2 g/dL (6.4-8.2); UREA NITROGEN, BLOOD 25 mg/dL (7-18)
[2017-08-31 13:29] LABS: *AMPHETAMINE, URINE NEGATIVE (NEGATIVE); *BARBITURATE, URINE NEGATIVE (NEGATIVE); *CANNABINOID, URINE NEGATIVE (NEGATIVE); *COCCAINE, URINE NEGATIVE (NEGATIVE); *OPIATE, URINE NEGATIVE (NEGATIVE); *PHENCYCLIDINE SCREEN,URINE NEGATIVE (NEGATIVE)
[2017-08-31 13:30] LABS: ETHANOL < 3 MG/DL (0-0)
[2017-08-31 13:31] LABS: ACETAMINOPHEN < 2.0 ug/mL (10-30); GLUCOSE 330 mg/dL (74-106)
[2017-08-31 13:52] LABS: THYROID STIMULATING HORMONE 3.235 mIU/mL (0.358-3.740)
--- NOTE | 2017-08-31 13:57 | NUR ---
pt medically cleared per er md. called kemar for psych eval.
--- NOTE | 2017-08-31 14:54 | NUR ---
[facility] provided for pt. pt fifnished it with good apetite. no difficulty swallowing.
--- NOTE | 2017-08-31 15:00 | NUR ---
security at bedside for one to one
--- NOTE | 2017-08-31 16:57 | NUR ---
Pt trans to MHU, NAD noted.
[2017-08-31 17:47] VITALS: BP 189/89
[2017-08-31] MEDS ORDERED: ALBUTEROL SULFATE 2.5 MG/3 ML NEBU NEB PRN (18:00)
[2017-08-31] MEDS ORDERED: MAG HYDROX/AL HYDROX/SIMETH 30 ML LIQUID UDC PO PRN (18:00)
[2017-08-31] MEDS ORDERED: POLYVINYL ALCOHOL OPHT DROPS 15 ML BOTTLE EACHEYE PRN (18:00)
[2017-08-31] MEDS ORDERED: ACETAMINOPHEN 325 MG TABLET PO PRN ×2 (18:00)
[2017-08-31] MEDS ORDERED: CARBOXYMETHYLCELLULOSE SODIUM OP PRN (18:00)
[2017-08-31] MEDS ORDERED: MAGNESIUM HYDROXIDE 30 ML LIQUID UDC PO PRN (18:00)
[2017-08-31] MEDS ORDERED: BISACODYL 10 MG SUPP.RECT RC PRN (18:00)
[2017-08-31] MEDS ORDERED: DEXTROSE 50% 50 ML DISP.SYRIN IV PRN (18:15)
--- NOTE | 2017-08-31 18:32 | NUR ---
GPS/RN - ADMISSION NOTE patient admitted on 5150 for Grave Disability per 5150 patient has been observed by his family grabbing at family and staff, being combative and aggressive. Upon face to face assessment, patient is alert and is oriented to self , confused and disoriented to place time and situation, irritable and loud at the beginning during assessment, patient verbalizing he wants to return to where he lives, patient redirected to admission and hold, does not recall being aggressive, patient frequently redirected. patient hyperverbal tangential during admission process. becomes verbally irritable and aggressive. assisted with adls patient advised of rights and hold status.
[2017-08-31] MEDS ORDERED: CLONIDINE HCL 0.2 MG TABLET PO PRN (18:45)
[2017-08-31 18:58] VITALS: BP 173/70
[2017-08-31] MEDS: BLOOD SUGAR DIAGNOSTIC 1 EACH STRIP VI SCH (20:57)
[2017-08-31] MEDS ORDERED: MELATONIN 3 MG TABLET PO SCH (21:00)
[2017-08-31 21:01] VITALS: BP 165/62
[2017-08-31] MEDS: INSULIN REGULAR, HUMAN 300 UNITS/3 ML VIAL SQ PRN (21:19)
[2017-08-31] MEDS: INSULIN GLARGINE,HUM 300 UNITS/3 ML CARTRIDGE SQ SCH (21:20)
[2017-08-31] MEDS: ATORVASTATIN 40 MG TABLET PO SCH (21:27)
[2017-08-31] MEDS: OXYBUTYNIN CHLORIDE 5 MG TABLET PO SCH (21:27)
[2017-08-31] MEDS: FINASTERIDE 5 MG TABLET PO SCH (21:27)
[2017-09-01] MEDS: TEMAZEPAM 7.5 MG CAPSULE PO PRN ×2 (00:27→21:30)
[2017-09-01] MEDS: LORAZEPAM 0.5 MG TABLET PO PRN ×2 (01:24→17:57)
--- NOTE | 2017-09-01 02:15 | NUR ---
Pt WOKE UP AGITATED AND YELLING AT NURSING STAFF PROVIDING CARE. Pt WAS HYPERVERBAL AND RAMBLING WITH HIS SPEECH. RESTLESS AND UNABLE TO SLEEP, TRYING TO GET OUT OF BED. ADMINISTERED RESTORIL 7.5 MG PO PRN FOR SLEEP, MEDICATION WAS NOT EFFECTIVE. Pt WAS STILL AWAKE, AGITATED AND TRYING TO GET OUT OF BED. ADMINISTERED ATIVAN 0.5 MG PO PRN FOR AGITATION, MEDICATION WAS EFFECTIVE. Pt IS NOW SLEEPING, NO DISTRESS NOTED. WILL CLOSELY MONITOR Pt BEHAVIOR THROUGHOUT SHIFT.
[2017-09-01] MEDS: BLOOD SUGAR DIAGNOSTIC 1 EACH STRIP VI SCH ×4 (06:33→20:32)
[2017-09-01 07:30] VITALS: BP 138/69
[2017-09-01] MEDS: DOCUSATE SODIUM 100 MG CAPSULE PO SCH ×2 (08:46→17:05)
[2017-09-01] MEDS: CYANOCOBALAMIN 100 MCG TABLET PO SCH (08:46)
[2017-09-01] MEDS: CARVEDILOL 3.125 MG TABLET PO SCH ×2 (08:47→17:08)
[2017-09-01] MEDS: LISINOPRIL 20 MG TABLET PO SCH (08:48)
[2017-09-01] MEDS: CHOLECALCIFEROL 400 UNITS TABLET PO SCH (08:48)
[2017-09-01] MEDS: MULTIVIT, IRON, MIN NO. 8, FA TABLET PO SCH (08:48)
[2017-09-01] MEDS: MAGNESIUM OXIDE 400 MG TABLET PO SCH ×2 (08:48→17:05)
[2017-09-01] MEDS: SENNOSIDES 1 TABLET PO SCH (08:49)
[2017-09-01] MEDS: OXYBUTYNIN CHLORIDE 5 MG TABLET PO SCH ×2 (08:49→20:26)
[2017-09-01] MEDS: ASPIRIN 81 MG TAB.CHEW PO SCH (08:51)
[2017-09-01] MEDS ORDERED: SOLIFENACIN SUCCINATE 5 MG TABEC PO SCH (09:00)
[2017-09-01] MEDS ORDERED: Medication Not On Formulary EA (Silodosin (Rapaflo) 8 MG) PO SCH (09:00)
[2017-09-01] MEDS ORDERED: LEVOFLOXACIN 750 MG TABLET PO SCH (09:00)
[2017-09-01] MEDS ORDERED: VITAMIN B12 PO SCH (09:00)
[2017-09-01] MEDS ORDERED: Medication Not On Formulary EA (Multivitamins W-Minerals (Multivitamin With Minerals) 1 PO SCH (09:00)
[2017-09-01] MEDS ORDERED: DONEPEZIL 5 MG TABLET PO SCH (09:00)
[2017-09-01] MEDS: QUETIAPINE FUMARATE 25 MG TABLET PO SCH ×3 (10:15→17:05)
[2017-09-01 11:25] LABS: *BILIRUBIN,URIN NEGATIVE (NEGATIVE); *BLOOD, URINE Trace-intact (NEGATIVE); *CLARITY,URINE CLOUDY (CLEAR); *COLOR,URINE YELLOW (YELLOW); *KETONES,URINE NEGATIVE (NEGATIVE); *PROTEIN,URINE NEGATIVE (NEGATIVE); *UROBILINOGEN,URINE 0.2 E.U./dl (NORMAL); LEUKOCYTE ESTERASE ,URINE NEGATIVE (NEGATIVE); NITRITE, URINE NEGATIVE (NEGATIVE); PH,URINE 6.5 (5.0-8.0)
[2017-09-01 11:32] LABS: UGLUCOSE 2+ (NEGATIVE)
[2017-09-01 11:33] LABS: BACTERIA,URINE FEW /HPF (NONE SEEN); RBC,URINE 0-3 /HPF (0-3); SQUAMOUS EPITHELIAL CELL,UR FEW /HPF (NONE SEEN); URINE AMORPHOUS URATE FEW /HPF; WBC,URINE 0-3 /HPF (0-3)
[2017-09-01] MEDS: INSULIN REGULAR, HUMAN 300 UNIT/3 ML VIAL SQ PRN ×2 (12:26→17:27)
[2017-09-01 15:38] VITALS: BP 104/59
[2017-09-01 20:00] VITALS: BP 112/61
[2017-09-01] MEDS: ATORVASTATIN 40 MG TABLET PO SCH (20:26)
[2017-09-01] MEDS: FINASTERIDE 5 MG TABLET PO SCH (20:26)
[2017-09-01] MEDS: INSULIN REGULAR, HUMAN 300 UNITS/3 ML VIAL SQ PRN (20:33)
[2017-09-01] MEDS: INSULIN GLARGINE,HUM 300 UNITS/3 ML CARTRIDGE SQ SCH (20:34)
[2017-09-02] MEDS: BLOOD SUGAR DIAGNOSTIC 1 EACH STRIP VI SCH ×4 (06:31→20:14)
[2017-09-02 07:30] VITALS: BP 164/84
[2017-09-02] MEDS: MAGNESIUM OXIDE 400 MG TABLET PO SCH ×2 (08:07→17:08)
[2017-09-02] MEDS: MULTIVIT, IRON, MIN NO. 8, FA TABLET PO SCH (08:07)
[2017-09-02] MEDS: CHOLECALCIFEROL 400 UNITS TABLET PO SCH (08:07)
[2017-09-02] MEDS: OXYBUTYNIN CHLORIDE 5 MG TABLET PO SCH ×2 (08:07→20:22)
[2017-09-02] MEDS: QUETIAPINE FUMARATE 25 MG TABLET PO SCH ×3 (08:07→17:08)
[2017-09-02] MEDS: DOCUSATE SODIUM 100 MG CAPSULE PO SCH ×2 (08:07→17:07)
[2017-09-02] MEDS: LISINOPRIL 20 MG TABLET PO SCH (08:07)
[2017-09-02] MEDS: ASPIRIN 81 MG TAB.CHEW PO SCH (08:08)
[2017-09-02] MEDS: SENNOSIDES 1 TABLET PO SCH (08:08)
[2017-09-02] MEDS: CARVEDILOL 3.125 MG TABLET PO SCH ×2 (08:26→17:20)
[2017-09-02] MEDS: CYANOCOBALAMIN 100 MCG TABLET PO SCH (08:31)
[2017-09-02] MEDS: INSULIN REGULAR, HUMAN 300 UNIT/3 ML VIAL SQ PRN ×3 (09:38→17:38)
[2017-09-02] MEDS ORDERED: MUPIROCIN 2% OINT 22 GM TUBE NS SCH (11:00)
[2017-09-02] MEDS: MUPIROCIN 2% OINT 22 GM TUBE TP SCH ×2 (12:55→20:22)
[2017-09-02 15:39] VITALS: BP 116/62
--- NOTE | 2017-09-02 17:21 | NUR ---
Repeated B/P 101/68 HR 83. Scheduled B/P was not administered. Medication was already opened. Could not returned in the pixes. Addendum: 09/02/17 at 1729 by LEYDA JUNE RN Repeated B/P 101/68 HR 83. Scheduled coreg was not administered. Medication package was already opened. Could returned in the pixes. It was wasted. Patient was anxious.
[2017-09-02 20:10] VITALS: BP 114/60
[2017-09-02] MEDS: INSULIN REGULAR, HUMAN 300 UNITS/3 ML VIAL SQ PRN (20:18)
[2017-09-02] MEDS: INSULIN GLARGINE,HUM 300 UNITS/3 ML CARTRIDGE SQ SCH (20:20)
[2017-09-02] MEDS: FINASTERIDE 5 MG TABLET PO SCH (20:22)
[2017-09-02] MEDS: ATORVASTATIN 40 MG TABLET PO SCH (20:22)
[2017-09-02] MEDS ORDERED: INSULIN GLARGINE,HUM 300 UNITS/3 ML CARTRIDGE SQ SCH (21:00)
[2017-09-03] MEDS: BLOOD SUGAR DIAGNOSTIC 1 EACH STRIP VI SCH ×4 (06:31→20:58)
[2017-09-03 07:30] VITALS: BP 160/71
[2017-09-03] MEDS: MAGNESIUM OXIDE 400 MG TABLET PO SCH ×2 (09:22→17:26)
[2017-09-03] MEDS: MUPIROCIN 2% OINT 22 GM TUBE TP SCH ×2 (09:22→20:50)
[2017-09-03] MEDS: SENNOSIDES 1 TABLET PO SCH (09:22)
[2017-09-03] MEDS: LISINOPRIL 20 MG TABLET PO SCH (09:22)
[2017-09-03] MEDS: ASPIRIN 81 MG TAB.CHEW PO SCH (09:22)
[2017-09-03] MEDS: OXYBUTYNIN CHLORIDE 5 MG TABLET PO SCH ×2 (09:22→20:50)
[2017-09-03] MEDS: QUETIAPINE FUMARATE 25 MG TABLET PO SCH ×3 (09:22→17:26)
[2017-09-03] MEDS: CYANOCOBALAMIN 100 MCG TABLET PO SCH (09:22)
[2017-09-03] MEDS: CHOLECALCIFEROL 400 UNITS TABLET PO SCH (09:22)
[2017-09-03] MEDS: DOCUSATE SODIUM 100 MG CAPSULE PO SCH ×2 (09:22→17:26)
[2017-09-03] MEDS: MULTIVIT, IRON, MIN NO. 8, FA TABLET PO SCH (09:22)
[2017-09-03] MEDS: CARVEDILOL 3.125 MG TABLET PO SCH ×2 (09:25→18:14)
--- NOTE | 2017-09-03 11:08 | NUR ---
Firearms Report: Shine Worker completed and submitted [employer] Firearms Report on 09/03/17 for 5250 Grave Disability certification.
[2017-09-03] MEDS: INSULIN REGULAR, HUMAN 300 UNIT/3 ML VIAL SQ PRN ×2 (12:44→17:28)
--- NOTE | 2017-09-03 13:44 | NUR ---
Initial Discharge Instructions: Patient currently resides at [facility] [[address], [place] [address]; ]. Per pt and family, they would like the patient to return there when stable for discharge. Spoke with Amanda at the facility who confirmed that the patient can return there upon discharge. SW will continue to collaborate with pt, family, and MD regarding appropriate discharge plans. SW will form a safe and proper discharge.
[2017-09-03 16:46] VITALS: BP 125/66
[2017-09-03 19:46] VITALS: BP 123/66
[2017-09-03] MEDS: ATORVASTATIN 40 MG TABLET PO SCH (20:50)
[2017-09-03] MEDS: FINASTERIDE 5 MG TABLET PO SCH (20:50)
[2017-09-03] MEDS: INSULIN REGULAR, HUMAN 300 UNITS/3 ML VIAL SQ PRN (21:01)
[2017-09-03] MEDS: INSULIN GLARGINE,HUM 300 UNITS/3 ML CARTRIDGE SQ SCH (21:02)
[2017-09-04] MEDS: BLOOD SUGAR DIAGNOSTIC 1 EACH STRIP VI SCH ×4 (06:36→20:18)
[2017-09-04 07:30] VITALS: BP 155/79
[2017-09-04] MEDS: CARVEDILOL 3.125 MG TABLET PO SCH ×2 (08:13→17:10)
[2017-09-04] MEDS: CHOLECALCIFEROL 400 UNITS TABLET PO SCH (08:13)
[2017-09-04] MEDS: ASPIRIN 81 MG TAB.CHEW PO SCH (08:13)
[2017-09-04] MEDS: MULTIVIT, IRON, MIN NO. 8, FA TABLET PO SCH (08:13)
[2017-09-04] MEDS: DOCUSATE SODIUM 100 MG CAPSULE PO SCH ×2 (08:13→16:37)
[2017-09-04] MEDS: MAGNESIUM OXIDE 400 MG TABLET PO SCH ×2 (08:13→16:37)
[2017-09-04] MEDS: SENNOSIDES 1 TABLET PO SCH (08:13)
[2017-09-04] MEDS: OXYBUTYNIN CHLORIDE 5 MG TABLET PO SCH ×2 (08:14→20:20)
[2017-09-04] MEDS: LISINOPRIL 20 MG TABLET PO SCH (08:14)
[2017-09-04] MEDS: QUETIAPINE FUMARATE 25 MG TABLET PO SCH ×3 (08:15→16:37)
[2017-09-04] MEDS: CYANOCOBALAMIN 100 MCG TABLET PO SCH (08:15)
[2017-09-04] MEDS: MUPIROCIN 2% OINT 22 GM TUBE TP SCH ×2 (08:17→20:20)
[2017-09-04] MEDS: INSULIN REGULAR, HUMAN 300 UNIT/3 ML VIAL SQ PRN ×2 (11:48→16:43)
[2017-09-04 15:33] VITALS: BP 132/55
[2017-09-04 20:15] VITALS: BP 137/61
[2017-09-04] MEDS: FINASTERIDE 5 MG TABLET PO SCH (20:20)
[2017-09-04] MEDS: ATORVASTATIN 40 MG TABLET PO SCH (20:20)
[2017-09-04] MEDS: INSULIN GLARGINE,HUM 300 UNITS/3 ML CARTRIDGE SQ SCH (20:22)
[2017-09-04] MEDS: INSULIN REGULAR, HUMAN 300 UNITS/3 ML VIAL SQ PRN (20:24)
[2017-09-05 00:10] VITALS: BP 157/68
--- NOTE | 2017-09-05 00:10 | NUR ---
RECEIVED PT AWAKE AND ALERTX2 VIA WHEELCHAIR FROM U. PT FRENCH SPEAKING. PT COOPERATIVE WITH CARE. PT STABLE AND NO ACUTE DISTRESS. VITAL SIGNS WITHIN NORMAL LIMIT. CALL LIGHT WITHIN REACH. PT HAVE 1:1 SITTER. PT IS ON CONTACT ISOLATION - MRSA(NARES). WILL CONTINUE TO MONITOR.
[2017-09-05] MEDS: TEMAZEPAM 7.5 MG CAPSULE PO PRN (00:29)
[2017-09-05] MEDS: BLOOD SUGAR DIAGNOSTIC 1 EACH STRIP VI SCH (06:49)
--- NOTE | 2017-09-05 06:50 | NUR ---
PT SLEPT INTERMITTENTLY.PT WITH NO ACUTE DISTRESS. PT STABLE. PT BLOOD SUGAR WAS 59 NOTIFY CHARGE NURSE AND GAVE ORANGE JUICE, AFTER 30 MINUTES I RECHECKED IT AGAIN ANG RESULT OF BLOOD SUGAR LEVEL WAS 102. NOTIFY CHARGE NURSE . COOPERATIVE WITH CARE. CALL LIGHT WITHIN REACH. SITTER AT BEDSIDE. WILL ENDORSE ACCORDINGLY.
--- NOTE | 2017-09-05 07:00 | NUR ---
RECEIVED PATIENT IN BED ASLEEP NO ACUTE DISTRESS NOTED. 1:1 SITTER AT BEDSIDE FOR SAFETY. CONTINUES TO BE COMPLIANT WITH MEDICATIONS. NO SI NOTED AT THIS TIME. SOMETIMES CONTINENT/INCONTINENT. USES URINAL. ON CONTACT ISOLATION FOR MRSA NARES. COMFORT MEASURES PROVIDED. WILL CONTINUE TO MONITOR CLOSELY.
[2017-09-05 08:09] VITALS: BP 160/83
[2017-09-05] MEDS: MAGNESIUM OXIDE 400 MG TABLET PO SCH (08:14)
[2017-09-05] MEDS: QUETIAPINE FUMARATE 25 MG TABLET PO SCH (08:14)
[2017-09-05] MEDS: CYANOCOBALAMIN 100 MCG TABLET PO SCH (08:14)
[2017-09-05] MEDS: SENNOSIDES 1 TABLET PO SCH (08:14)
[2017-09-05] MEDS: LISINOPRIL 20 MG TABLET PO SCH (08:15)
[2017-09-05] MEDS: OXYBUTYNIN CHLORIDE 5 MG TABLET PO SCH (08:15)
[2017-09-05] MEDS: CARVEDILOL 3.125 MG TABLET PO SCH (08:15)
[2017-09-05] MEDS: MULTIVIT, IRON, MIN NO. 8, FA TABLET PO SCH (08:15)
[2017-09-05] MEDS: CHOLECALCIFEROL 400 UNITS TABLET PO SCH (08:16)
[2017-09-05] MEDS: ASPIRIN 81 MG TAB.CHEW PO SCH (08:16)
[2017-09-05] MEDS: DOCUSATE SODIUM 100 MG CAPSULE PO SCH (08:16)
--- NOTE | 2017-09-05 08:21 | NUR ---
Discharge Note: Patient will be discharged back to [facility] today [[address], [place] [address]; ] via private transportation at 11:30am. Spoke with Amanda at the facility who states they are ready to accept the patient back today and will be providing the transportation for the patient. Left a message for patient's grand daughter, Maddie Carter ([phone]) to alert about patient's discharge plans. Patient is alert and oriented x2 and is cooperative. Patient will follow-up at the facility with Dr. Mccall (Wind Turbine Technician) and Dr. Vale (Psychiatrist).
[2017-09-05] MEDS: MUPIROCIN 2% OINT 22 GM TUBE TP SCH (08:25)
--- NOTE | 2017-09-05 11:44 | NUR ---
PATIENT DISCHARGED INSTABLE CONDITION. LEFT FACILITY VIA PRIVATE TRANSPORTATION PROVIDED BY [facility]. REPORT CALLED PRIOR TO DISCHARGE TO [facility]. DISCHARGE PAPERS AND INSTRUCTIONS GIVEN AND EXPLAINED TO PATIENT. BELONGINGS LIST COMPLETED. ID BAND REMOVED AND DISPOSED OF PER PROTOCOL.
[2017-09-05 11:49] VITALS: BP 162/65
== END 2017-09-05 11:55 | DRG 885 ==
LOC: ER 12:12 → GPS 16:48 → GPSOV 09-04 23:34
PROVIDERS: ADMIT Psychiatry & Neurology Psychiatry; ATTEND Internal Medicine
DX: F29 Unspecified psychosis not due to a substance or known physiological condition (principal); N18.9 Chronic kidney disease, unspecified; E11.65 Type 2 diabetes mellitus with hyperglycemia; F23 Brief psychotic disorder; J44.9 Chronic obstructive pulmonary disease, unspecified; N40.0 Benign prostatic hyperplasia without lower urinary tract symptoms; E78.5 Hyperlipidemia, unspecified; E03.9 Hypothyroidism, unspecified; Z73.6 Limitation of activities due to disability; F03.90 Unspecified dementia, unspecified severity, without behavioral disturbance, psychotic disturbance, mood disturbance, and anxiety; R53.1 Weakness; R13.10 Dysphagia, unspecified; K59.00 Constipation, unspecified; E53.8 Deficiency of other specified B group vitamins; N32.81 Overactive bladder; N28.9 Disorder of kidney and ureter, unspecified; Z79.82 Long term (current) use of aspirin; Z79.4 Long term (current) use of insulin; Z22.322 Carrier or suspected carrier of Methicillin resistant Staphylococcus aureus; F32.9 Major depressive disorder, single episode, unspecified; Z79.84 Long term (current) use of oral hypoglycemic drugs; I12.9 Hypertensive chronic kidney disease with stage 1 through stage 4 chronic kidney disease, or unspecified chronic kidney disease
CPT/HCPCS: 36415; 70030-TC; 70450; 71045; 80307; 83605; 84443; 85025; 85730; 87040; 87086; 93005; A4663; G0480; G0480-TC; J1815

== ENCOUNTER 2018-04-18 19:30 | Inpatient (IN) | payer MEDICARE, MEDICAID, OTHER ==
[~2018-04-18] VITALS: Ht 165.1 cm; Wt 66.2 kg
[~2018-04-18 19:30] MED LIST changes: -ACET325C PO; +ACET325C3 PO; +ACET325T53 PO; +ALBU2.5V38 IH; +BLOO-140 IN; +CARB15DR97 OP; +CHOL400T PO; +DEXT237L PO; +DOCU100C36 PO; +DONE5TAB34 PO; +GLUC1KIT IJ; +INSU100I26 SQ; +MAGN400O6 PO; +MAGN400T40 PO; +MELA3TAB PO; +METF-440 PO; -METF500T6 PO; +MULT-213 PO; +SENN-168 PO; +SILO8CAP2 PO; +SITA100T PO; +SOLI5TAB2 PO; +VITAMIN B12 PO; +[UNRECOGNIZED DRUG - CODE] MC
--- NOTE | 2018-04-18 20:10 | NUR ---
Patient here for eval from [facility]. No available sitter at this time per Nursing Administration Clerk. Patient is vincentian speaking only. No respiratory distress noted. No cough, no sob. No cardiovascular distress, all pulses palpable. No Gi/ distress noted. Patient in lowest position on bed, siderails up x2, fall precautions implemented per protocol.
[2018-04-18 20:27] LABS: BASOPHILS # (AUTO) 0.2 K/uL (0.0-8.0); BASOPHILS % (AUTO) 1.7 % (0.0-2.0); EOSINOPHILS # (AUTO) 0.3 K/uL (0.0-0.7); EOSINOPHILS % (AUTO) 2.6 % (0.0-7.0); HEMATOCRIT 33.2 % (36.7-47.1); LYMPHOCYTES % (AUTO) 27.1 % (20.5-51.5); MEAN CORPUSCULAR HEMOGLOBIN 28.8 uug (23.8-33.4); MEAN CORPUSCULAR HGB CONC 33 g/dL (32.5-36.3); MEAN CORPUSCULAR VOLUME 87.3 fL (73.0-96.2); MONOCYTES # (AUTO) 0.9 K/uL (2.0-10.0); MONOCYTES % (AUTO) 8.5 % (0.0-11.0); NEUTROPHILS # (AUTO) 6.7 K/uL (1.8-8.9); NEUTROPHILS % (AUTO) 60.1 % (38.5-71.5); PLATELET COUNT (AUTO) 234 K/uL (152-348); WHITE BLOOD COUNT (AUTO) 11.1 K/uL (3.6-10.2)
[2018-04-18 20:36] LABS: CARBON DIOXIDE 29 mmol/L (21-32); CHLORIDE 100 mmol/L (98-107); CREATININE 1.2 mg/dL (0.6-1.3); GLUCOSE 209 mg/dL (74-106); POTASSIUM 4.7 mmol/L (3.5-5.1); UREA NITROGEN, BLOOD 26 mg/dL (7-18)
[2018-04-18] MEDS ORDERED: CYAN1TAB43 PO (20:37)
[2018-04-18] MEDS ORDERED: CA/D1TAB7 PO (20:37)
[2018-04-18 20:43] LABS: ACETAMINOPHEN 5.2 ug/mL (10-30); ALANINE AMINOTRANSFERASE 17 U/L (16-63); ALKALINE PHOSPHATASE 89 U/L (50-136); ASPARTATE AMINOTRANSFERASE 16 U/L (15-37); BILIRUBIN,DIRECT 0.1 mg/dL (0.0-0.2); BILIRUBIN,TOTAL 0.2 mg/dL (0.2-1.0); TOTAL PROTEIN, SERUM 6.9 g/dL (6.4-8.2)
[2018-04-18 20:44] LABS: ETHANOL < 3 MG/DL (0-0)
--- NOTE | 2018-04-18 21:17 | NUR ---
Per ER MD, patient is medically cleared. Phone call made to Art for psych evaluation.
[2018-04-18 21:31] LABS: *BILIRUBIN,URIN NEGATIVE (NEGATIVE); *BLOOD, URINE NEGATIVE (NEGATIVE); *CLARITY,URINE CLEAR (CLEAR); *COLOR,URINE YELLOW (YELLOW); *KETONES,URINE 1+ (NEGATIVE); *UROBILINOGEN,URINE 0.2 E.U./dl (NORMAL); LEUKOCYTE ESTERASE ,URINE NEGATIVE (NEGATIVE); NITRITE, URINE NEGATIVE (NEGATIVE); UGLUCOSE TRACE (NEGATIVE)
[2018-04-18 21:40] LABS: MUCUS,URINE MODERATE /LPF (0-FEW); RBC,URINE 0-3 /HPF (0-3); SQUAMOUS EPITHELIAL CELL,UR FEW /HPF (NONE SEEN); WBC,URINE 0-3 /HPF (0-3)
[2018-04-18 21:41] LABS: *AMPHETAMINE, URINE NEGATIVE (NEGATIVE); *BARBITURATE, URINE NEGATIVE (NEGATIVE); *CANNABINOID, URINE NEGATIVE (NEGATIVE); *COCCAINE, URINE NEGATIVE (NEGATIVE); *OPIATE, URINE NEGATIVE (NEGATIVE); *PHENCYCLIDINE SCREEN,URINE NEGATIVE (NEGATIVE)
--- NOTE | 2018-04-18 21:43 | NUR ---
Patient in bed at lowest position, side rails upx2, and asleep. VSS, NAD
--- NOTE | 2018-04-18 22:17 | NUR ---
Art at bedside for eval.
--- NOTE | 2018-04-19 00:03 | NUR ---
Report given to NADEGE Romero
[2018-04-19] MEDS ORDERED: MAG HYDROX/AL HYDROX/SIMETH 30 ML LIQUID UDC PO PRN (01:00)
[2018-04-19] MEDS ORDERED: MAGNESIUM HYDROXIDE 30 ML LIQUID UDC PO PRN ×2 (01:00→07:30)
--- NOTE | 2018-04-19 01:09 | NUR ---
Pt. admitted to MHU , under care of Dr. Malin Belongs List completed
--- NOTE | 2018-04-19 01:45 | NUR ---
Received patient from the ED. Awake, alert, but disoriented to place, time, date. VS are stable. Patient is aggressive and angry. Ivorian speaking, but was able to reorient using nicaraguan speaking co worker. Patient incontinent of urine and stool. Inge care done, and patient was able to calm down and relax once in bed. Fall precautions in place for safety. Will endorse plan of care in am.
[2018-04-19 07:30] VITALS: BP 172/66
[2018-04-19] MEDS ORDERED: Medication Not On Formulary EA (Acetaminophen 650 MG) PO PRN (07:30)
[2018-04-19] MEDS: BLOOD SUGAR DIAGNOSTIC 1 EACH STRIP VI SCH ×5 (07:30→21:00)
[2018-04-19] MEDS ORDERED: BISACODYL 10 MG SUPP.RECT RC PRN (07:30)
[2018-04-19] MEDS ORDERED: [UNRECOGNIZED DRUG - OTHER] PO SCH (09:00)
[2018-04-19] MEDS ORDERED: SOLIFENACIN SUCCINATE 5 MG TABEC PO SCH (09:00)
[2018-04-19] MEDS ORDERED: MULTIVITAMINS W MINERALS PO SCH (09:00)
[2018-04-19] MEDS ORDERED: Medication Not On Formulary EA (Multivitamins W-Minerals (Multivitamin With Minerals) 1 PO SCH (09:00)
[2018-04-19] MEDS ORDERED: Medication Not On Formulary EA (Sitagliptin Phosphate (Januvia) 100 MG) PO SCH (09:00)
[2018-04-19] MEDS ORDERED: Medication Not On Formulary EA (Silodosin (Rapaflo) 8 MG) PO SCH (09:00)
[2018-04-19] MEDS: CARVEDILOL 3.125 MG TABLET PO SCH ×2 (09:20→17:25)
[2018-04-19] MEDS: MAGNESIUM OXIDE 400 MG TABLET PO SCH ×2 (09:20→17:25)
[2018-04-19] MEDS: DOCUSATE SODIUM 100 MG CAPSULE PO SCH ×2 (09:20→17:25)
[2018-04-19] MEDS: SENNOSIDES 1 TABLET PO SCH (09:20)
[2018-04-19] MEDS: ASPIRIN 81 MG TAB.CHEW PO SCH (09:20)
[2018-04-19] MEDS: CYANOCOBALAMIN 100 MCG TABLET PO SCH (09:20)
[2018-04-19] MEDS: CALCIUM CARB/VITAMIN D 600-400 MG TABLET PO SCH (09:20)
[2018-04-19] MEDS: CHOLECALCIFEROL 400 UNITS TABLET PO SCH (09:21)
[2018-04-19] MEDS: LINAGLIPTIN 5 MG TABLET PO SCH (09:21)
[2018-04-19] MEDS: glipiZIDE 5 MG TABLET PO SCH ×2 (09:21→17:25)
[2018-04-19] MEDS: MULTIVIT, IRON, MIN NO. 8, FA TABLET PO SCH (09:21)
--- NOTE | 2018-04-19 11:17 | NUR ---
Initial Discharge Instructions: Patient is a current resident of [facility] [[address], [place] [address]; [phone]]. Spoke with pt's grand daughter, Maddie Piedra ([phone]) who states that she would like the patient to return to that facility when he is ready for discharge. Spoke with Amanda in admissions at the facility who reports that the patient can return when he is stable for discharge. SW will continue to collaborate with pt, family, and MD to ensure a safe and proper discharge.
[2018-04-19] MEDS ORDERED: AZITHROMYCIN 250 MG TABLET PO SCH (12:00)
[2018-04-19] MEDS: QUETIAPINE FUMARATE 25 MG TABLET PO SCH ×2 (12:34→21:51)
[2018-04-19] MEDS ORDERED: DEXTROSE 50% 50 ML DISP.SYRIN IV PRN (12:45)
[2018-04-19] MEDS: DOXYCYCLINE HYCLATE 100 MG TABLET PO SCH ×2 (12:48→21:51)
[2018-04-19] MEDS: INSULIN REGULAR, HUMAN 300 UNIT/3 ML VIAL SQ PRN (12:53)
[2018-04-19] MEDS: TAMSULOSIN HCL 0.4 MG CAP.SR.24H PO SCH (21:51)
[2018-04-19] MEDS: FINASTERIDE 5 MG TABLET PO SCH (21:51)
[2018-04-19 22:30] VITALS: BP 160/82
[2018-04-20] MEDS: BLOOD SUGAR DIAGNOSTIC 1 EACH STRIP VI SCH ×5 (06:33→21:58)
[2018-04-20 07:30] VITALS: BP 170/81
[2018-04-20] MEDS: CYANOCOBALAMIN 100 MCG TABLET PO SCH (08:47)
[2018-04-20] MEDS: QUETIAPINE FUMARATE 25 MG TABLET PO SCH ×2 (08:47→20:21)
[2018-04-20] MEDS: ASPIRIN 81 MG TAB.CHEW PO SCH (08:47)
[2018-04-20] MEDS: MAGNESIUM OXIDE 400 MG TABLET PO SCH ×2 (08:47→17:20)
[2018-04-20] MEDS: glipiZIDE 5 MG TABLET PO SCH ×2 (08:48→17:21)
[2018-04-20] MEDS: DOCUSATE SODIUM 100 MG CAPSULE PO SCH ×2 (08:48→17:20)
[2018-04-20] MEDS: CALCIUM CARB/VITAMIN D 600-400 MG TABLET PO SCH (08:48)
[2018-04-20] MEDS: SENNOSIDES 1 TABLET PO SCH (08:48)
[2018-04-20] MEDS: MULTIVIT, IRON, MIN NO. 8, FA TABLET PO SCH (08:48)
[2018-04-20] MEDS: CARVEDILOL 3.125 MG TABLET PO SCH ×2 (08:48→17:22)
[2018-04-20] MEDS: LINAGLIPTIN 5 MG TABLET PO SCH (08:49)
[2018-04-20] MEDS: DOXYCYCLINE HYCLATE 100 MG TABLET PO SCH ×2 (08:49→20:20)
[2018-04-20] MEDS: CHOLECALCIFEROL 400 UNITS TABLET PO SCH (08:49)
[2018-04-20] MEDS: INSULIN REGULAR, HUMAN 300 UNIT/3 ML VIAL SQ PRN ×3 (12:33→21:33)
[2018-04-20 16:50] VITALS: BP 184/83
[2018-04-20] MEDS: TAMSULOSIN HCL 0.4 MG CAP.SR.24H PO SCH (20:20)
[2018-04-20] MEDS: FINASTERIDE 5 MG TABLET PO SCH (20:21)
[2018-04-20 21:09] VITALS: BP 157/76
--- NOTE | 2018-04-21 05:55 | NUR ---
GPS: Remain calm and cooperative with medications and care. alert to name only, remain disoriented to place,time and date. VS are stable. Central African speaking. Patient incontinent of urine and stool. assisted with adl's. on 1:1 sitter for safety. slept 9 hrs through the night. continue plan of care.
[2018-04-21] MEDS: BLOOD SUGAR DIAGNOSTIC 1 EACH STRIP VI SCH ×4 (06:24→20:50)
[2018-04-21 07:30] VITALS: BP 108/59
[2018-04-21] MEDS: INSULIN REGULAR, HUMAN 300 UNIT/3 ML VIAL SQ PRN ×4 (07:48→21:01)
[2018-04-21] MEDS: CARVEDILOL 3.125 MG TABLET PO SCH ×2 (08:00→17:01)
[2018-04-21] MEDS: ASPIRIN 81 MG TAB.CHEW PO SCH (08:16)
[2018-04-21] MEDS: MULTIVIT, IRON, MIN NO. 8, FA TABLET PO SCH (08:16)
[2018-04-21] MEDS: LINAGLIPTIN 5 MG TABLET PO SCH (08:16)
[2018-04-21] MEDS: glipiZIDE 5 MG TABLET PO SCH ×2 (08:17→17:01)
[2018-04-21] MEDS: CYANOCOBALAMIN 100 MCG TABLET PO SCH (08:17)
[2018-04-21] MEDS: CHOLECALCIFEROL 400 UNITS TABLET PO SCH (08:17)
[2018-04-21] MEDS: MAGNESIUM OXIDE 400 MG TABLET PO SCH ×2 (08:17→16:07)
[2018-04-21] MEDS: SENNOSIDES 1 TABLET PO SCH (08:17)
[2018-04-21] MEDS: DOCUSATE SODIUM 100 MG CAPSULE PO SCH ×2 (08:17→16:07)
[2018-04-21] MEDS: DOXYCYCLINE HYCLATE 100 MG TABLET PO SCH ×2 (08:17→21:02)
[2018-04-21] MEDS: QUETIAPINE FUMARATE 25 MG TABLET PO SCH ×2 (08:17→21:02)
[2018-04-21] MEDS: CALCIUM CARB/VITAMIN D 600-400 MG TABLET PO SCH (08:33)
--- NOTE | 2018-04-21 12:01 | NUR ---
PT BLOOD SUGAR BEFORE LUNCH WAS 431. RECHECK, WITH 358 RESULTED. PT ASYMPTOMATIC. ABLE TO MAKE ALL NEEDS KNOWN.
[2018-04-21 15:29] VITALS: BP 104/58
[2018-04-21 20:00] VITALS: BP 115/54
[2018-04-21] MEDS: TAMSULOSIN HCL 0.4 MG CAP.SR.24H PO SCH (21:01)
[2018-04-21] MEDS: FINASTERIDE 5 MG TABLET PO SCH (21:02)
[2018-04-22] MEDS: BLOOD SUGAR DIAGNOSTIC 1 EACH STRIP VI SCH ×4 (07:00→21:00)
[2018-04-22 07:30] VITALS: BP 102/52
[2018-04-22] MEDS: CARVEDILOL 3.125 MG TABLET PO SCH ×2 (08:00→17:28)
[2018-04-22] MEDS: MAGNESIUM OXIDE 400 MG TABLET PO SCH ×2 (08:23→16:23)
[2018-04-22] MEDS: MULTIVIT, IRON, MIN NO. 8, FA TABLET PO SCH (08:23)
[2018-04-22] MEDS: CYANOCOBALAMIN 100 MCG TABLET PO SCH (08:23)
[2018-04-22] MEDS: glipiZIDE 5 MG TABLET PO SCH ×2 (08:24→17:28)
[2018-04-22] MEDS: DOCUSATE SODIUM 100 MG CAPSULE PO SCH ×2 (08:24→16:24)
[2018-04-22] MEDS: CALCIUM CARB/VITAMIN D 600-400 MG TABLET PO SCH (08:25)
[2018-04-22] MEDS: QUETIAPINE FUMARATE 25 MG TABLET PO SCH ×2 (08:25→20:59)
[2018-04-22] MEDS: SENNOSIDES 1 TABLET PO SCH (08:25)
[2018-04-22] MEDS: ASPIRIN 81 MG TAB.CHEW PO SCH (08:25)
[2018-04-22] MEDS: LINAGLIPTIN 5 MG TABLET PO SCH (08:25)
[2018-04-22] MEDS: DOXYCYCLINE HYCLATE 100 MG TABLET PO SCH ×2 (08:25→20:59)
[2018-04-22] MEDS: CHOLECALCIFEROL 400 UNITS TABLET PO SCH (08:26)
[2018-04-22] MEDS: INSULIN REGULAR, HUMAN 300 UNIT/3 ML VIAL SQ PRN ×3 (08:30→17:29)
[2018-04-22] MEDS: ACETAMINOPHEN 325 MG TABLET PO PRN ×2 (08:31→16:24)
[2018-04-22] MEDS ORDERED: DEXTROSE 50% 50 ML DISP.SYRIN IV PRN (10:30)
[2018-04-22] MEDS: POLYVINYL ALCOHOL OPHT DROPS 15 ML BOTTLE EACHEYE SCH ×2 (10:36→18:19)
[2018-04-22] MEDS: GUAIFENESIN/DEXTROMETHORPHAN 5 ML UDC PO PRN (11:31)
[2018-04-22 15:02] VITALS: BP 136/67
[2018-04-22 19:40] VITALS: BP 141/61
[2018-04-22] MEDS: INSULIN REGULAR, HUMAN 300 UNITS/3 ML VIAL SQ PRN (20:24)
[2018-04-22] MEDS: FINASTERIDE 5 MG TABLET PO SCH (20:57)
[2018-04-22] MEDS: TAMSULOSIN HCL 0.4 MG CAP.SR.24H PO SCH (20:57)
--- NOTE | 2018-04-23 04:31 | NUR ---
Received patient in bed with 1:1 sitter at bedside for his safety. AAO x1, confused. No acute distress was noted. Patient is calm and cooperative. Compliant with medication. All due medication given as ordered. Accucheck done BS: 215 @2100, 4 units insulin coverage based on sliding scale. Safety measures maintained. Continue to monitor and will endorse to the day shift nurse accordingly.
[2018-04-23] MEDS: BLOOD SUGAR DIAGNOSTIC 1 EACH STRIP VI SCH ×6 (06:34→22:45)
[2018-04-23 07:30] VITALS: BP 136/65
[2018-04-23] MEDS: DOCUSATE SODIUM 100 MG CAPSULE PO SCH ×2 (08:15→17:02)
[2018-04-23] MEDS: ACETAMINOPHEN 325 MG TABLET PO PRN ×2 (08:16→17:09)
[2018-04-23] MEDS: ASPIRIN 81 MG TAB.CHEW PO SCH (08:16)
[2018-04-23] MEDS: MULTIVIT, IRON, MIN NO. 8, FA TABLET PO SCH (08:16)
[2018-04-23] MEDS: CYANOCOBALAMIN 100 MCG TABLET PO SCH (08:16)
[2018-04-23] MEDS: glipiZIDE 5 MG TABLET PO SCH ×2 (08:16→17:04)
[2018-04-23] MEDS: CALCIUM CARB/VITAMIN D 600-400 MG TABLET PO SCH (08:17)
[2018-04-23] MEDS: MAGNESIUM OXIDE 400 MG TABLET PO SCH ×2 (08:17→17:02)
[2018-04-23] MEDS: QUETIAPINE FUMARATE 25 MG TABLET PO SCH ×2 (08:17→17:02)
[2018-04-23] MEDS: SENNOSIDES 1 TABLET PO SCH (08:17)
[2018-04-23] MEDS: CARVEDILOL 3.125 MG TABLET PO SCH ×2 (08:18→17:05)
[2018-04-23] MEDS: CHOLECALCIFEROL 400 UNITS TABLET PO SCH (08:19)
[2018-04-23] MEDS: DOXYCYCLINE HYCLATE 100 MG TABLET PO SCH ×2 (08:19→20:34)
[2018-04-23] MEDS: LINAGLIPTIN 5 MG TABLET PO SCH (08:20)
[2018-04-23] MEDS: INSULIN REGULAR, HUMAN 300 UNIT/3 ML VIAL SQ PRN ×3 (08:27→17:07)
--- NOTE | 2018-04-23 10:56 | NUR ---
Firearms Report: AUSTYN completed and submitted [employer] Firearms Report for 5250 GD certification.
[2018-04-23] MEDS: GUAIFENESIN/DEXTROMETHORPHAN 5 ML UDC PO PRN (12:44)
--- NOTE | 2018-04-23 18:23 | NUR ---
received patient awake on bed on 1:1 sitter secondary safety , patient med compliant with apple sauce, patient speaking, walks on walker with PT, denies and discomfort,on accucheck with last BS reading at 194 insulin given per sliding scale as ordered, accucheck done at 11;30 with BS at 411 , insulin given per sliding scale, md aware, accucheck at 4;30pm at 204, will continue monitor
--- NOTE | 2018-04-23 19:45 | NUR ---
RECEIVED PATIENT IN HIS ROOM ASLEEP BUT EASILY AROUSABLE. HE IS NOTED A/O X1. IN NO ACUTE DISTRESS; HOWEVER, IT WAS NOTED THAT PATIENT WAS HAVING MILD TREMORS ON BOTH OF HIS ARMS. ACCU CHECK WAS DONE WITH A READING OF 28. 8OZ OF ORANGE JUICE PO WAS IMMEDIATELY GIVEN. RN AND SITTER AT BED SIDE. PT IN NO ACUTE DISTRESS, NO CHANGES IN LOC. WILL CONTINUE TO MONITOR CLOSELY.
--- NOTE | 2018-04-23 20:15 | NUR ---
RECHECKED ACCU CHECK GLUCOSE LEVEL WITH A READING OF 84. NO TREMORS WERE NOTED, PATIENT NOTED AWAKE A/O X1 AND RESPONSIVE WITH NO CHANGES IN LOC. SITTER AND RN BED SIDE, PATIENT WILL CONTINUE ON 1:1 FOR SAFETY, PATIENT IS LEGALLY BLIND. V/S STABLE AT THIS TIME. WILL CONTINUE TO MONITOR CLOSELY.
[2018-04-23 20:22] VITALS: BP 100/78
[2018-04-23] MEDS: FINASTERIDE 5 MG TABLET PO SCH (20:34)
[2018-04-23] MEDS: TAMSULOSIN HCL 0.4 MG CAP.SR.24H PO SCH (20:34)
--- NOTE | 2018-04-23 22:30 | NUR ---
REPEAT X3 ACCU CHECK WITH RESULTS OF 196. PATIENT IN NO ACUTE DISTRESS. NO CHANGES IN LOC. CONTINUE A/O X 1 EASILY IRRITABLE WHEN AWOKEN. NO AGGRESSIVE OR COMBATIVE BX NOTED AT THIS TIME. NO TREMORS WERE OBSERVED AT THIS TIME. HE CONTINUE ON 1:1 SUPERVISION FOR SAFETY. WILL CONTINUE TO MONITOR.
[2018-04-24] MEDS: BLOOD SUGAR DIAGNOSTIC 1 EACH STRIP VI SCH ×4 (06:47→20:51)
--- NOTE | 2018-04-24 06:55 | NUR ---
PT SLEPT FOR APPROX 7.45 HRS LAST NIGHT. ACCU CHECK 255. HAD A SHOWER THIS AM. WILL CONTINUE ON 1:1 SUPERVISION.
[2018-04-24 07:47] LABS: BASOPHILS % (AUTO) 0.2 % (0.0-2.0); EOSINOPHILS # (AUTO) 0.2 K/uL (0.0-0.7); EOSINOPHILS % (AUTO) 2.4 % (0.0-7.0); LYMPHOCYTES # (AUTO) 2.1 K/uL (20.0-40.0); LYMPHOCYTES % (AUTO) 22.6 % (20.5-51.5); MEAN CORPUSCULAR HGB CONC 33 g/dL (32.5-36.3); MEAN CORPUSCULAR VOLUME 86.9 fL (73.0-96.2); MONOCYTES # (AUTO) 0.6 K/uL (2.0-10.0); MONOCYTES % (AUTO) 6.7 % (0.0-11.0); NEUTROPHILS # (AUTO) 6.3 K/uL (1.8-8.9); NEUTROPHILS % (AUTO) 68.1 % (38.5-71.5); PLATELET COUNT (AUTO) 223 K/uL (152-348); RED BLOOD CELL COUNT(AUTO) 3.79 MIL/uL (4.06-5.63); WHITE BLOOD COUNT (AUTO) 9.2 K/uL (3.6-10.2)
[2018-04-24 07:54] VITALS: BP 147/60
[2018-04-24 08:03] LABS: ALANINE AMINOTRANSFERASE 17 U/L (16-63); ALKALINE PHOSPHATASE 71 U/L (50-136); ASPARTATE AMINOTRANSFERASE 19 U/L (15-37); BILIRUBIN,TOTAL 0.4 mg/dL (0.2-1.0); CARBON DIOXIDE 27 mmol/L (21-32); CHLORIDE 98 mmol/L (98-107); CREATININE 1.1 mg/dL (0.6-1.3); GLUCOSE 241 mg/dL (74-106); MAGNESIUM 2.2 mg/dL (1.8-2.4); PHOSPHOROUS 3.2 mg/dL (2.5-4.9); POTASSIUM 4.6 mmol/L (3.5-5.1); TOTAL PROTEIN, SERUM 6.6 g/dL (6.4-8.2); UREA NITROGEN, BLOOD 26 mg/dL (7-18)
[2018-04-24] MEDS: ASPIRIN 81 MG TAB.CHEW PO SCH (08:24)
[2018-04-24] MEDS: CALCIUM CARB/VITAMIN D 600-400 MG TABLET PO SCH (08:24)
[2018-04-24] MEDS: MAGNESIUM OXIDE 400 MG TABLET PO SCH ×2 (08:24→17:14)
[2018-04-24] MEDS: SENNOSIDES 1 TABLET PO SCH (08:24)
[2018-04-24] MEDS: CARVEDILOL 3.125 MG TABLET PO SCH ×2 (08:24→17:15)
[2018-04-24] MEDS: QUETIAPINE FUMARATE 25 MG TABLET PO SCH ×3 (08:25→17:14)
[2018-04-24] MEDS: CYANOCOBALAMIN 100 MCG TABLET PO SCH (08:25)
[2018-04-24] MEDS: glipiZIDE 5 MG TABLET PO SCH ×2 (08:25→17:14)
[2018-04-24] MEDS: DOCUSATE SODIUM 100 MG CAPSULE PO SCH ×2 (08:25→17:14)
[2018-04-24] MEDS: MULTIVIT, IRON, MIN NO. 8, FA TABLET PO SCH (08:26)
[2018-04-24] MEDS: CHOLECALCIFEROL 400 UNITS TABLET PO SCH (08:26)
[2018-04-24] MEDS: LINAGLIPTIN 5 MG TABLET PO SCH (08:26)
[2018-04-24] MEDS: DOXYCYCLINE HYCLATE 100 MG TABLET PO SCH ×2 (08:27→20:59)
[2018-04-24] MEDS: INSULIN REGULAR, HUMAN 300 UNIT/3 ML VIAL SQ PRN ×3 (11:46→20:58)
[2018-04-24 16:10] VITALS: BP 123/60
--- NOTE | 2018-04-24 16:59 | NUR ---
GROUP NOTE: Patients were asked to draw a picture of how they see themselves and to reflect on picture. Subjective: "..." Objective: Patient was asleep in bed when social media specialist arrived to patient bedside. Patient was unable to be woken up. Assessment: Patient presented as calm. clerical office worker unable to assess further as patient sleeping. Plan: clerical office worker will continue to encourage group attendance as scheduled. clerical office worker will continue to provide support to the patient to encourage interaction with peers.
--- NOTE | 2018-04-24 18:34 | NUR ---
received patient awake on bed, with 1;1 sitter, walks with PT with walker, patient tolerated the activity, patient compliant to medication, all needs met will continue monitor
[2018-04-24] MEDS: FINASTERIDE 5 MG TABLET PO SCH (20:59)
[2018-04-24] MEDS: TAMSULOSIN HCL 0.4 MG CAP.SR.24H PO SCH (20:59)
[2018-04-24 21:10] VITALS: BP 121/79
[2018-04-25] MEDS: BLOOD SUGAR DIAGNOSTIC 1 EACH STRIP VI SCH ×4 (06:32→21:02)
[2018-04-25 07:30] VITALS: BP 145/57
[2018-04-25] MEDS: SENNOSIDES 1 TABLET PO SCH (08:38)
[2018-04-25] MEDS: glipiZIDE 5 MG TABLET PO SCH ×2 (08:39→17:34)
[2018-04-25] MEDS: CYANOCOBALAMIN 100 MCG TABLET PO SCH (08:39)
[2018-04-25] MEDS: CALCIUM CARB/VITAMIN D 600-400 MG TABLET PO SCH (08:39)
[2018-04-25] MEDS: CARVEDILOL 3.125 MG TABLET PO SCH ×2 (08:39→17:34)
[2018-04-25] MEDS: MAGNESIUM OXIDE 400 MG TABLET PO SCH ×2 (08:39→17:34)
[2018-04-25] MEDS: MULTIVIT, IRON, MIN NO. 8, FA TABLET PO SCH (08:39)
[2018-04-25] MEDS: QUETIAPINE FUMARATE 25 MG TABLET PO SCH ×2 (08:39→17:34)
[2018-04-25] MEDS: DOXYCYCLINE HYCLATE 100 MG TABLET PO SCH ×2 (08:40→20:23)
[2018-04-25] MEDS: ASPIRIN 81 MG TAB.CHEW PO SCH (08:40)
[2018-04-25] MEDS: CHOLECALCIFEROL 400 UNITS TABLET PO SCH (08:40)
[2018-04-25] MEDS: LINAGLIPTIN 5 MG TABLET PO SCH (08:41)
[2018-04-25] MEDS: INSULIN REGULAR, HUMAN 300 UNIT/3 ML VIAL SQ PRN ×2 (08:43→12:12)
[2018-04-25] MEDS: DOCUSATE SODIUM 100 MG CAPSULE PO SCH ×2 (08:51→17:00)
--- NOTE | 2018-04-25 10:49 | NUR ---
Assistant Teaching Professor Discharge Planning: Level Vial Grinder called and spoke with patient's grand-daughter, Maddie ([phone]) to discuss discharge planning and pt's prognosis. SW informed Mdadie that pt is likely to be discharged tomorrow (04/26/18) back to his SNF, [facility] [Address: [facility] [address], [place] [address]; ]. Maddie verbalized agreement and understanding. AUSTYN then alerted Amanda at the facility of patient's potential discharge. Per Amanda, the facility will arranged transportation for the patient tomorrow at 12:30pm. AUSTYN will continue to follow-up.
[2018-04-25] MEDS ORDERED: CLONAZEPAM 0.5 MG TABLET PO PRN (12:00)
--- NOTE | 2018-04-25 14:35 | NUR ---
CLONAZEPAM PRN IS GIVEN ONES, NO REACTION IS NOTED, DOCTOR EVELIO IS NOTIFIED
[2018-04-25 16:00] VITALS: BP 122/43
[2018-04-25 20:18] VITALS: BP 122/58
[2018-04-25] MEDS: FINASTERIDE 5 MG TABLET PO SCH (20:23)
[2018-04-25] MEDS: TAMSULOSIN HCL 0.4 MG CAP.SR.24H PO SCH (20:24)
[2018-04-25] MEDS: INSULIN REGULAR, HUMAN 300 UNITS/3 ML VIAL SQ PRN (21:02)
[2018-04-26] MEDS: BLOOD SUGAR DIAGNOSTIC 1 EACH STRIP VI SCH ×2 (06:40→12:46)
[2018-04-26 07:30] VITALS: BP 135/59
[2018-04-26] MEDS: glipiZIDE 5 MG TABLET PO SCH (08:00)
--- NOTE | 2018-04-26 08:52 | NUR ---
DISCHARGE NOTE: Patient will be discharged back to [facility] [Address: [address], [place] [address]; ] via private transportation at 12:30pm. Spoke with Amanda at the facility who states they are ready to accept the patient back today and has arranged transportation for the patient. Spoke with patient�s grand-daughter, Maddie ([phone]) who is aware and agreeable with discharge plans. Patient is alert and oriented x1 and is cooperative. Patient will follow-up at the facility with Dr. Mccall (Exerciser) and Dr. Vale (Psychiatrist). Patient was provided with outpatient mental health referrals to [facility] [[address], [place] [address]; [phone]]; [facility] Crisis Line ([phone]); National Suicide Prevention Lifeline ( ).
[2018-04-26] MEDS: DOCUSATE SODIUM 100 MG CAPSULE PO SCH (09:00)
[2018-04-26] MEDS: SENNOSIDES 1 TABLET PO SCH (09:35)
[2018-04-26] MEDS: MULTIVIT, IRON, MIN NO. 8, FA TABLET PO SCH (09:35)
[2018-04-26] MEDS: CALCIUM CARB/VITAMIN D 600-400 MG TABLET PO SCH (09:35)
[2018-04-26] MEDS: MAGNESIUM OXIDE 400 MG TABLET PO SCH (09:35)
[2018-04-26] MEDS: CYANOCOBALAMIN 100 MCG TABLET PO SCH (09:35)
[2018-04-26] MEDS: QUETIAPINE FUMARATE 25 MG TABLET PO SCH (09:35)
[2018-04-26] MEDS: ASPIRIN 81 MG TAB.CHEW PO SCH (09:35)
[2018-04-26 09:36] VITALS: BP 135/59
[2018-04-26] MEDS: LINAGLIPTIN 5 MG TABLET PO SCH (09:36)
[2018-04-26] MEDS: CARVEDILOL 3.125 MG TABLET PO SCH (09:36)
[2018-04-26] MEDS: CHOLECALCIFEROL 400 UNITS TABLET PO SCH (09:36)
[2018-04-26] MEDS: GUAIFENESIN/DEXTROMETHORPHAN 5 ML UDC PO PRN (10:29)
--- NOTE | 2018-04-26 11:43 | NUR ---
Gps/Registered Dietitian-Called [facility] report was given to Nurse Aguila.
[2018-04-26] MEDS: INSULIN REGULAR, HUMAN 300 UNIT/3 ML VIAL SQ PRN (12:17)
--- NOTE | 2018-04-26 13:00 | NUR ---
Gps/Boilermaker Helper- Kristian Toledo was in to see patient today, informed of discharge plan back to [facility].
--- NOTE | 2018-04-26 13:30 | NUR ---
Gps/Director Trade- Kristian Toledo DNP was called and was informed of elevated BS at noon was 428, was covered w/ 15 units of regular insulin per sliding scale. Blood sugar rechecked in 1 hour BS was 432., Kristian Toledo DNP was called and was informed ,no new orders received.
--- NOTE | 2018-04-26 14:45 | NUR ---
Gps/Event Host- Patient's daughter Galilea called informed of patient dc.plan . Also informed patient's black shoes missing at this time., unable to locate. Transportation from [facility] in to garbage pick up worker patient all belongings given, wheel chair returned. Discharged in good spirit no new complaints noted. no distress.denies pain.
== END 2018-04-26 14:45 | DRG 885 ==
LOC: ER 19:36 → GPS 04-19 00:36
PROVIDERS: ADMIT Psychiatry & Neurology Psychiatry; ATTEND Nurse Practitioner Acute Care
DX: F29 Unspecified psychosis not due to a substance or known physiological condition (principal); E11.65 Type 2 diabetes mellitus with hyperglycemia; J15.9 Unspecified bacterial pneumonia; J44.0 Chronic obstructive pulmonary disease with (acute) lower respiratory infection; F03.91 Unspecified dementia, unspecified severity, with behavioral disturbance; E87.1 Hypo-osmolality and hyponatremia; R13.11 Dysphagia, oral phase; D50.9 Iron deficiency anemia, unspecified; N40.0 Benign prostatic hyperplasia without lower urinary tract symptoms; Z91.19 Patient's noncompliance with other medical treatment and regimen; E86.0 Dehydration; Z79.82 Long term (current) use of aspirin; Z79.899 Other long term (current) drug therapy; I45.4 Nonspecific intraventricular block; I70.0 Atherosclerosis of aorta; Z79.4 Long term (current) use of insulin; I25.10 Atherosclerotic heart disease of native coronary artery without angina pectoris
CPT/HCPCS: 36415; 71045; 80307; 83735; 84100; 84443; 85025; 93005; 97110; 97116; 97530; A4663; G0480; G0480-TC; J1815

== ENCOUNTER 2018-11-08 16:12 | Inpatient (IN) | payer MEDICARE, MEDICAID ==
[~2018-11-08] VITALS: Ht 167.6 cm; Wt 61.2 kg
[~2018-11-08 16:12] MED LIST changes: -ACET325T53 PO; -ALBU2.5V38 IH; -ATOR40TA PO; -BLOO-140 IN; +CA/D1TAB7 PO; -CARB15DR97 OP; +CYAN1TAB43 PO; -DEXT15DR6 OP; -DEXT237L PO; -DONE5TAB34 PO; -GLUC1KIT IJ; -INSU100I26 SQ; -LEVO750T21 PO; -LISI-603 PO; -METF-440 PO; -SENN-18 PO; -VITAMIN B12 PO; -[UNRECOGNIZED DRUG - CODE] MC
[2018-11-08 17:04] LABS: BASOPHILS % (AUTO) 0.5 % (0.0-2.0); EOSINOPHILS # (AUTO) 0.2 K/uL (0.0-0.7); EOSINOPHILS % (AUTO) 2.9 % (0.0-7.0); HEMATOCRIT 38.4 % (36.7-47.1); HEMOGLOBIN 12.6 g/dL (12.5-16.3); LYMPHOCYTES # (AUTO) 2.2 K/uL (20.0-40.0); LYMPHOCYTES % (AUTO) 29.7 % (20.5-51.5); MEAN CORPUSCULAR HEMOGLOBIN 29.7 uug (23.8-33.4); MEAN CORPUSCULAR HGB CONC 33 g/dL (32.5-36.3); MEAN CORPUSCULAR VOLUME 90.4 fL (73.0-96.2); MONOCYTES # (AUTO) 0.7 K/uL (2.0-10.0); MONOCYTES % (AUTO) 8.8 % (0.0-11.0); NEUTROPHILS # (AUTO) 4.4 K/uL (1.8-8.9); NEUTROPHILS % (AUTO) 58.1 % (38.5-71.5); PLATELET COUNT (AUTO) 181 K/uL (152-348); RED BLOOD CELL COUNT(AUTO) 4.24 MIL/uL (4.06-5.63); WHITE BLOOD COUNT (AUTO) 7.5 K/uL (3.6-10.2)
[2018-11-08 17:12] LABS: CARBON DIOXIDE 28 mmol/L (21-32); CHLORIDE 104 mmol/L (98-107); CREATININE 1.4 mg/dL (0.6-1.3); POTASSIUM 4.2 mmol/L (3.5-5.1); UREA NITROGEN, BLOOD 24 mg/dL (7-18)
[2018-11-08 17:13] LABS: GLUCOSE 309 mg/dL (74-106)
[2018-11-08] MEDS ORDERED: ALBU2.5V13 IH (17:15)
[2018-11-08] MEDS ORDERED: HYDR453. TP (17:15)
[2018-11-08] MEDS ORDERED: CLON1PAT14 TD (17:15)
[2018-11-08] MEDS ORDERED: ALPR0.255 PO (17:15)
[2018-11-08] MEDS ORDERED: DONE5TAB34 PO (17:15)
[2018-11-08] MEDS ORDERED: ECON15CR13 TP (17:15)
[2018-11-08] MEDS ORDERED: ATOR40TA PO (17:15)
[2018-11-08] MEDS ORDERED: DIPH25CA83 PO (17:15)
[2018-11-08] MEDS ORDERED: BISA10SU12 RC (17:15)
[2018-11-08] MEDS ORDERED: CALC-1026 PO (17:15)
[2018-11-08] MEDS ORDERED: DEXT15DR6 EACHEYE (17:15)
[2018-11-08] MEDS ORDERED: GUAI-959 PO (17:15)
[2018-11-08] MEDS ORDERED: AMLO5TAB4 PO (17:15)
[2018-11-08] MEDS ORDERED: MELA5TAB PO (17:15)
[2018-11-08] MEDS ORDERED: INSU100V10 SQ (17:15)
[2018-11-08] MEDS ORDERED: VITS42.53 TP (17:15)
[2018-11-08] MEDS ORDERED: ACET200V5 INH (17:15)
[2018-11-08 17:18] LABS: ETHANOL < 3 MG/DL (0-0)
[2018-11-08 17:25] LABS: ACETAMINOPHEN < 2.0 ug/mL (10-30); ALANINE AMINOTRANSFERASE 15 U/L (16-63); ALKALINE PHOSPHATASE 95 U/L (50-136); ASPARTATE AMINOTRANSFERASE 18 U/L (15-37); BILIRUBIN,DIRECT 0.1 mg/dL (0.0-0.2); BILIRUBIN,TOTAL 0.2 mg/dL (0.2-1.0); TOTAL PROTEIN, SERUM 7.1 g/dL (6.4-8.2)
[2018-11-08 17:45] LABS: THYROID STIMULATING HORMONE 2.758 mIU/mL (0.358-3.740)
--- NOTE | 2018-11-08 17:46 | NUR ---
CRISIS VIDEO GAME REPAIR TECHNICIAN NANCY WAS CALLED TO EVALUATE THE PT. MESSAGE WAS LEFT.
--- NOTE | 2018-11-08 18:04 | NUR ---
Pt was evaluated by .Pt wasmedically cleared.Awaiting for psych eval.Pt remains in bed.Appears comfortable.Pt family at bedside.Will continue to monitor.
--- NOTE | 2018-11-08 19:27 | NUR ---
SBAR report given to VANESSA Ac
--- NOTE | 2018-11-08 20:06 | NUR ---
Pinky RN at bedside for psyche eval
--- NOTE | 2018-11-08 20:30 | NUR ---
PT HAND OFF AND SBAR GIVEN TO ASHANTI AT [facility] PT MEDICALLY CLEARED, PT WILL ADMITTED UNDER DR. FRASER
[2018-11-08] MEDS ORDERED: CLONAZEPAM 0.5 MG TABLET PO PRN (20:45)
[2018-11-08] MEDS ORDERED: MAGNESIUM HYDROXIDE 30 ML LIQUID UDC PO PRN (20:45)
[2018-11-08] MEDS ORDERED: TEMAZEPAM 7.5 MG CAPSULE PO PRN (20:45)
[2018-11-08] MEDS ORDERED: ACETAMINOPHEN 325 MG TABLET PO PRN (20:45)
[2018-11-08] MEDS ORDERED: BLOOD SUGAR DIAGNOSTIC 1 EACH STRIP VI ONE (20:45)
[2018-11-08] MEDS ORDERED: MAG HYDROX/AL HYDROX/SIMETH 30 ML LIQUID UDC PO PRN (20:45)
--- NOTE | 2018-11-08 21:19 | NUR ---
PT TRANSFERED VIA GURNEY ACCOMPANIED BY IZZY PT BELONGINGS LIST SIGNED/CO-SIGNED PT NAD, COMPLIANT AND COOPERATIVE, +SI WITHOUT PLAN -HI
[2018-11-08 21:30] VITALS: BP 159/75
[2018-11-08] MEDS ORDERED: BISACODYL 10 MG SUPP.RECT RC PRN (22:15)
[2018-11-08] MEDS ORDERED: ALBUTEROL SULFATE 2.5 MG/ 0.5 ML NEBU IH PRN (22:15)
[2018-11-08] MEDS ORDERED: DEXTROSE 50% 50 ML DISP.SYRIN IV PRN (22:30)
--- NOTE | 2018-11-08 22:30 | NUR ---
ADMISSION NOTE: AT APPROX. 2120, ADMITTED 88 YEARS OLD MALE TO [facility] ON A 5150 FOR DTS. PATIENT RESIDES AT [facility]) IN [facility]. PER HOLD, PATIENT WAS BROUGHT TO [facility] ER BY A FAMILY MEMBER D/T DEPRESSION OF SUICIDAL IDEATION, AGITATION, AND DEPRESSION. PATIENT ALSO COMPLAINED OF NOT SLEEPING, SUSPICIOUS THAT HER MEDICATION IS FAKE AND WAS NOT GIVEN TO HIM BY STAFF MEMBER, EASILY AGITATED AND IRRITABLE. PATIENT HAS HAD MULTIPLE ADMISSIONS TO [facility], LAST ONE ON 06/30. HIS HOLD WILL END ON 11/11/18 AT 2009. UPON FACE TO FACE EVALUATION, PATIENT APPEARS TO REFLECT WHAT IS ON THE HOLD. HE IS NOTED AWAKE A/O X 1, CONFUSED, UNSTEADY GAIT, UNCOOPERATIVE WITH ADMISSION PROCESS AND EASILY IRRITABLE. HE WAS UNABLE TO SIGN HIS ADMISSION PAPERS D/T CONFUSED. UPON INTERVIEW, PATIENT STATES, "I AM HERE BECAUSE IN THE OTHER PLACE THEY GIVE ME MEDICATION THAT TASTE BAD AND I DON'T WANT IT. I ALSO SLEEP ONLY THREE HOURS A NIGHT". SKIN ASSESSMENT WAS LIMITED D/T PATIENT POOR COMPLIANT; HOWEVER, SKIN APPEARS INTACT. PATIENT WAS GIVEN THE "PATIENT'S RIGHTS" HANDOUT AND HIS ADVISEMENT. HE WAS ALSO ORIENTED TO UNIT RULES BUT WILL NEED CONSTANT REDIRECTION HE IS FORGETFUL. PT IS UNDER THE CARE OF . Q15 MIN HEAD CHECKS WAS INITIATED FOR SAFETY AND SI PRECAUTION. WILL CONTINUE TO MONITOR.
[2018-11-08] MEDS: INSULIN REGULAR, HUMAN 300 UNITS/3 ML VIAL SQ PRN (22:55)
[2018-11-09 07:05] LABS: *AMPHETAMINE, URINE NEGATIVE (NEGATIVE); *BARBITURATE, URINE NEGATIVE (NEGATIVE); *CANNABINOID, URINE NEGATIVE (NEGATIVE); *COCCAINE, URINE NEGATIVE (NEGATIVE); *OPIATE, URINE NEGATIVE (NEGATIVE); *PHENCYCLIDINE SCREEN,URINE NEGATIVE (NEGATIVE)
[2018-11-09] MEDS: BLOOD SUGAR DIAGNOSTIC 1 EACH STRIP VI SCH ×4 (07:10→20:41)
[2018-11-09] MEDS ORDERED: ALBUTEROL SULFATE 2.5 MG/3 ML NEBU NEB PRN (07:15)
[2018-11-09 07:30] VITALS: BP 135/57
--- NOTE | 2018-11-09 07:30 | NUR ---
PATIENT SLEPT FOR APPROX. 7.30 HRS THROUGH THE NIGHT. URINE WAS COLLECTED AND TAKEN TO THE LAB FOR UA, UA C&S AND DRUG SCREENING. PATIENT DENIES SI. HE IS NOTED TANGENTAL, BUT ABLE TO CFS. ACCU CHECK IS 281. WILL CONTINUE TO MONITOR.
[2018-11-09 08:27] LABS: BASOPHILS % (AUTO) 0.3 % (0.0-2.0); EOSINOPHILS # (AUTO) 0.2 K/uL (0.0-0.7); EOSINOPHILS % (AUTO) 2.5 % (0.0-7.0); HEMATOCRIT 35.5 % (36.7-47.1); HEMOGLOBIN 12.3 g/dL (12.5-16.3); LYMPHOCYTES % (AUTO) 24.6 % (20.5-51.5); MEAN CORPUSCULAR HEMOGLOBIN 31.7 uug (23.8-33.4); MEAN CORPUSCULAR HGB CONC 35 g/dL (32.5-36.3); MEAN CORPUSCULAR VOLUME 91.4 fL (73.0-96.2); MONOCYTES # (AUTO) 0.6 K/uL (2.0-10.0); MONOCYTES % (AUTO) 7.2 % (0.0-11.0); NEUTROPHILS # (AUTO) 5.4 K/uL (1.8-8.9); NEUTROPHILS % (AUTO) 65.4 % (38.5-71.5); PLATELET COUNT (AUTO) 180 K/uL (152-348); RED BLOOD CELL COUNT(AUTO) 3.88 MIL/uL (4.06-5.63); WHITE BLOOD COUNT (AUTO) 8.2 K/uL (3.6-10.2)
[2018-11-09 08:36] LABS: ALANINE AMINOTRANSFERASE 13 U/L (16-63); ALKALINE PHOSPHATASE 80 U/L (50-136); ASPARTATE AMINOTRANSFERASE 14 U/L (15-37); BILIRUBIN,TOTAL 0.5 mg/dL (0.2-1.0); CARBON DIOXIDE 27 mmol/L (21-32); CHLORIDE 101 mmol/L (98-107); CREATININE 0.9 mg/dL (0.6-1.3); GLUCOSE 266 mg/dL (74-106); MAGNESIUM 1.7 mg/dL (1.8-2.4); POTASSIUM 4.2 mmol/L (3.5-5.1); TOTAL PROTEIN, SERUM 6.7 g/dL (6.4-8.2); UREA NITROGEN, BLOOD 18 mg/dL (7-18)
[2018-11-09] MEDS: CARVEDILOL 3.125 MG TABLET PO SCH ×2 (08:44→17:09)
[2018-11-09] MEDS: CALCIUM CARBONATE 500 MG TABLET PO SCH (08:44)
[2018-11-09] MEDS: POLYVINYL ALCOHOL OPHT DROPS 15 ML BOTTLE EACHEYE SCH ×2 (08:44→17:06)
[2018-11-09] MEDS: AMLODIPINE 5 MG TABLET PO SCH (08:45)
[2018-11-09] MEDS: INSULIN REGULAR, HUMAN 300 UNIT/3 ML VIAL SQ PRN ×3 (08:51→17:03)
[2018-11-09] MEDS ORDERED: MAGNESIUM OXIDE 400 MG TABLET PO ONE (11:00)
[2018-11-09 15:11] VITALS: BP 138/102
[2018-11-09 20:16] VITALS: BP 186/81
[2018-11-09] MEDS: ATORVASTATIN 40 MG TABLET PO SCH (20:26)
[2018-11-09] MEDS: MIRTAZAPINE 15 MG TABLET PO SCH (20:27)
[2018-11-09] MEDS: INSULIN REGULAR, HUMAN 300 UNITS/3 ML VIAL SQ PRN (21:02)
[2018-11-09] MEDS: INSULIN GLARGINE,HUM 300 UNITS/3 ML CARTRIDGE SQ SCH (21:07)
[2018-11-10 02:44] LABS: *BILIRUBIN,URIN NEGATIVE (NEGATIVE); *COLOR,URINE YELLOW (YELLOW); *KETONES,URINE NEGATIVE (NEGATIVE); *UROBILINOGEN,URINE 0.2 E.U./dl (NORMAL); LEUKOCYTE ESTERASE ,URINE TRACE (NEGATIVE); NITRITE, URINE POSITIVE (NEGATIVE); PH,URINE 8.5 (5.0-8.0); UGLUCOSE NEGATIVE (NEGATIVE)
[2018-11-10 02:45] LABS: *BLOOD, URINE TRACE (NEGATIVE); *CLARITY,URINE HAZY (CLEAR)
[2018-11-10 02:51] LABS: BACTERIA,URINE MANY /HPF (NONE SEEN); RBC,URINE 0-3 /HPF (0-3); SQUAMOUS EPITHELIAL CELL,UR FEW /HPF (NONE SEEN)
[2018-11-10] MEDS: BLOOD SUGAR DIAGNOSTIC 1 EACH STRIP VI SCH ×4 (06:54→20:42)
[2018-11-10 07:30] VITALS: BP 114/55
[2018-11-10] MEDS: POLYVINYL ALCOHOL OPHT DROPS 15 ML BOTTLE EACHEYE SCH ×2 (08:25→16:41)
[2018-11-10] MEDS: AMLODIPINE 5 MG TABLET PO SCH (08:25)
[2018-11-10] MEDS: CALCIUM CARBONATE 500 MG TABLET PO SCH (08:26)
[2018-11-10] MEDS: CARVEDILOL 3.125 MG TABLET PO SCH ×2 (08:26→17:07)
--- NOTE | 2018-11-10 09:00 | NUR ---
Gps/Early Childhood Educator Aide- Observed patient during his breakfast, sitting at the edge of his bed , tolerating pureed diet , no coughing noted, instructed to eat slowly. Thickened liquids to nectar , until Speech Therapist Jillian evaluate patient for dysphagia concerns.
[2018-11-10] MEDS: INSULIN REGULAR, HUMAN 300 UNIT/3 ML VIAL SQ PRN ×4 (12:15→20:41)
[2018-11-10] MEDS: CEphaleXIN 500 MG CAPSULE PO SCH ×2 (12:16→16:43)
[2018-11-10 15:31] VITALS: BP 115/56
[2018-11-10 20:10] VITALS: BP 133/64
[2018-11-10] MEDS: MIRTAZAPINE 15 MG TABLET PO SCH (20:34)
[2018-11-10] MEDS: ATORVASTATIN 40 MG TABLET PO SCH (20:34)
[2018-11-10] MEDS: INSULIN REGULAR, HUMAN 300 UNITS/3 ML VIAL SQ PRN (20:41)
[2018-11-10] MEDS: INSULIN GLARGINE,HUM 300 UNITS/3 ML CARTRIDGE SQ SCH (20:48)
[2018-11-11] MEDS: BLOOD SUGAR DIAGNOSTIC 1 EACH STRIP VI SCH ×4 (06:33→20:31)
[2018-11-11 07:30] VITALS: BP 122/55
[2018-11-11] MEDS: CEphaleXIN 500 MG CAPSULE PO SCH ×2 (08:51→17:06)
[2018-11-11] MEDS: CALCIUM CARBONATE 500 MG TABLET PO SCH (08:51)
[2018-11-11] MEDS: POLYVINYL ALCOHOL OPHT DROPS 15 ML BOTTLE EACHEYE SCH ×2 (08:52→17:06)
[2018-11-11] MEDS: AMLODIPINE 5 MG TABLET PO SCH (08:52)
[2018-11-11] MEDS: CARVEDILOL 3.125 MG TABLET PO SCH ×2 (08:52→17:07)
[2018-11-11] MEDS: INSULIN REGULAR, HUMAN 300 UNIT/3 ML VIAL SQ PRN ×2 (08:54→16:58)
[2018-11-11] MEDS: SERTRALINE HCL 50 MG TABLET PO SCH (12:44)
--- NOTE | 2018-11-11 16:22 | NUR ---
Initial Discharge Plan: Patient is an 88 year old male currently residing at [facility] [[address], [place] [address]; [phone]]. Patient's grand-daughter Maddie [[phone]] is requesting placement at [facility] [[address], [place] [address]; ]. Per referring facility - [facility], Lithopress Operator Essence, patient's family has made them aware of the potential move. waterside worker will continue to meet with patient, and collaborate with patient, family. and MD on a safe and proper discharge plan.
[2018-11-11 20:00] VITALS: BP 114/55
[2018-11-11] MEDS: ATORVASTATIN 40 MG TABLET PO SCH (20:24)
[2018-11-11] MEDS: MIRTAZAPINE 15 MG TABLET PO SCH (20:24)
[2018-11-11] MEDS: INSULIN GLARGINE,HUM 300 UNITS/3 ML CARTRIDGE SQ SCH (20:30)
[2018-11-11] MEDS: INSULIN REGULAR, HUMAN 300 UNITS/3 ML VIAL SQ PRN (20:32)
--- NOTE | 2018-11-11 22:00 | NUR ---
received to care, lying in bed, pleasant upon approach. compliant with medications and staff direction. as of 0, he appears to be asleep. no distress noted. will continue to monitor closely.
--- NOTE | 2018-11-12 06:00 | NUR ---
slept 6.75 hours, total. continues to sleep. no distress noted.
[2018-11-12] MEDS: BLOOD SUGAR DIAGNOSTIC 1 EACH STRIP VI SCH ×4 (06:28→19:55)
[2018-11-12 07:30] VITALS: BP 152/66
[2018-11-12] MEDS: CALCIUM CARBONATE 500 MG TABLET PO SCH (08:42)
[2018-11-12] MEDS: CEphaleXIN 500 MG CAPSULE PO SCH ×2 (08:42→16:39)
[2018-11-12] MEDS: CARVEDILOL 3.125 MG TABLET PO SCH ×2 (08:42→17:26)
[2018-11-12] MEDS: AMLODIPINE 5 MG TABLET PO SCH (08:43)
[2018-11-12] MEDS: POLYVINYL ALCOHOL OPHT DROPS 15 ML BOTTLE EACHEYE SCH ×2 (08:43→16:40)
[2018-11-12] MEDS: SERTRALINE HCL 50 MG TABLET PO SCH (12:54)
[2018-11-12] MEDS: DIVALPROEX SPRINKLE 125 MG CAP.SPRINK PO SCH ×2 (14:10→16:39)
--- NOTE | 2018-11-12 14:22 | NUR ---
FIREARMS REPORT: Bull Fiddle Player completed and submitted a [employer] firearms report for 5150 DTS certification. A copy of report has been placed in patient chart.
[2018-11-12 15:42] VITALS: BP 112/53
[2018-11-12] MEDS: INSULIN REGULAR, HUMAN 300 UNIT/3 ML VIAL SQ PRN (16:39)
--- NOTE | 2018-11-12 16:40 | NUR ---
GPS: Nursing Notes: Accu-check: SCS=301, continue with Insulin sliding scale per FBS.
[2018-11-12] MEDS: INSULIN GLARGINE,HUM 300 UNITS/3 ML CARTRIDGE SQ SCH (19:56)
[2018-11-12] MEDS: INSULIN REGULAR, HUMAN 300 UNITS/3 ML VIAL SQ PRN (19:59)
[2018-11-12] MEDS: ATORVASTATIN 40 MG TABLET PO SCH (20:04)
[2018-11-12] MEDS: risperiDONE 0.25 MG TABLET PO SCH (20:04)
--- NOTE | 2018-11-13 05:40 | NUR ---
slept 5.0 hours, total. continues to sleep. no distress noted.
[2018-11-13] MEDS: BLOOD SUGAR DIAGNOSTIC 1 EACH STRIP VI SCH ×4 (06:38→20:36)
[2018-11-13 07:30] VITALS: BP 137/59
[2018-11-13] MEDS: DIVALPROEX SPRINKLE 125 MG CAP.SPRINK PO SCH ×3 (08:33→20:30)
[2018-11-13] MEDS: CEphaleXIN 500 MG CAPSULE PO SCH ×2 (08:34→16:18)
[2018-11-13] MEDS: AMLODIPINE 5 MG TABLET PO SCH (08:34)
[2018-11-13] MEDS: CARVEDILOL 3.125 MG TABLET PO SCH ×2 (08:35→17:13)
[2018-11-13] MEDS: CALCIUM CARBONATE 500 MG TABLET PO SCH (08:36)
[2018-11-13] MEDS: POLYVINYL ALCOHOL OPHT DROPS 15 ML BOTTLE EACHEYE SCH ×2 (08:36→16:18)
[2018-11-13] MEDS: SERTRALINE HCL 50 MG TABLET PO SCH (12:31)
[2018-11-13 15:24] VITALS: BP 127/55
[2018-11-13] MEDS: INSULIN REGULAR, HUMAN 300 UNIT/3 ML VIAL SQ PRN (16:57)
--- NOTE | 2018-11-13 20:00 | NUR ---
RECEIVED PATIENT LYING IN BED ASLEEP, BUT EASILY AROUSE TO VERBAL STIMULI. AOX1-2, SPEAKING, CAN GET ANXIOUS BUT EASILY REDIRECTED. COOPERATIVE WITH CARE. DENIES SI/HI. DENIES ANY PAIN. NEEDS ASSESSED AND ATTENDED TO. CONTINUE TO MONITOR.
[2018-11-13] MEDS: risperiDONE 0.25 MG TABLET PO SCH (20:29)
[2018-11-13] MEDS: ATORVASTATIN 40 MG TABLET PO SCH (20:29)
[2018-11-13 20:33] VITALS: BP 158/69
[2018-11-13] MEDS: INSULIN REGULAR, HUMAN 300 UNITS/3 ML VIAL SQ PRN (20:37)
[2018-11-13] MEDS: INSULIN GLARGINE,HUM 300 UNITS/3 ML CARTRIDGE SQ SCH (20:38)
[2018-11-14] MEDS: BLOOD SUGAR DIAGNOSTIC 1 EACH STRIP VI SCH ×4 (06:35→20:39)
--- NOTE | 2018-11-14 07:30 | NUR ---
RECIEVED PT LYING IN BED. ESTONIAN SPEAKING ONLY. AWAKE, AND ORIENTEDX1. ASSISTED PT ON THE WHEELCHAIR. PT IS VERY SHAKY AND WABBLY, MAX ASSIST. PT ATE GOOD. TOLERATING PUREE DIET.
[2018-11-14 08:20] VITALS: BP 136/68
--- NOTE | 2018-11-14 08:30 | NUR ---
ASSISTED PT TO THE BATHROOM VIA W/C AND HAD A VERY GOOD BM. SHOERED WITH MAX ASSIST AND TOLERATING WELL.
[2018-11-14] MEDS: AMLODIPINE 5 MG TABLET PO SCH (09:35)
[2018-11-14] MEDS: DIVALPROEX SPRINKLE 125 MG CAP.SPRINK PO SCH ×3 (09:35→20:31)
[2018-11-14] MEDS: CEphaleXIN 500 MG CAPSULE PO SCH ×2 (09:36→17:18)
[2018-11-14] MEDS: CALCIUM CARBONATE 500 MG TABLET PO SCH (09:37)
[2018-11-14] MEDS: POLYVINYL ALCOHOL OPHT DROPS 15 ML BOTTLE EACHEYE SCH ×2 (09:37→17:20)
[2018-11-14] MEDS: CARVEDILOL 3.125 MG TABLET PO SCH (09:39)
--- NOTE | 2018-11-14 11:30 | NUR ---
SLEEPING ON AND OFF, CONDITION IS STABLE.
[2018-11-14] MEDS: INSULIN REGULAR, HUMAN 300 UNIT/3 ML VIAL SQ PRN (12:37)
[2018-11-14] MEDS: SERTRALINE HCL 50 MG TABLET PO SCH (12:40)
--- NOTE | 2018-11-14 14:00 | NUR ---
PT WORKED WITH PT, STILL SHAKY AND SHUFFLING. PT IS COOPERATIVE
[2018-11-14 15:48] VITALS: BP 139/62
[2018-11-14] MEDS: ATORVASTATIN 40 MG TABLET PO SCH (20:30)
[2018-11-14] MEDS: risperiDONE 0.25 MG TABLET PO SCH (20:31)
[2018-11-14] MEDS: INSULIN REGULAR, HUMAN 300 UNITS/3 ML VIAL SQ PRN (20:58)
[2018-11-14] MEDS: INSULIN GLARGINE,HUM 300 UNITS/3 ML CARTRIDGE SQ SCH (20:59)
--- NOTE | 2018-11-14 21:57 | NUR ---
PATIENT RECEIVED IN BED AWAKE, PATIENT IS ALERT/ORIENTED X1. PATIENT IS COMPLAINT WITH MEDICATION. PATIENT IS EASILY IRRITABLE AND AGITATED IS REDIRECTABLE. PATIENT DENIES PAIN AT THIS TIME WILL CONTINUE TO MONITOR. BED IN LOWEST POSITION. BED LOCKED, AND BED ALARM ON WHILE IN BED.
[2018-11-14 22:21] VITALS: BP 121/61
[2018-11-15] MEDS: BLOOD SUGAR DIAGNOSTIC 1 EACH STRIP VI SCH ×4 (06:44→20:16)
[2018-11-15 07:30] VITALS: BP 90/62
[2018-11-15] MEDS: CARVEDILOL 3.125 MG TABLET PO SCH ×2 (08:00→17:04)
[2018-11-15] MEDS: AMLODIPINE 5 MG TABLET PO SCH (09:00)
[2018-11-15] MEDS: POLYVINYL ALCOHOL OPHT DROPS 15 ML BOTTLE EACHEYE SCH ×2 (09:11→17:01)
[2018-11-15] MEDS: CEphaleXIN 500 MG CAPSULE PO SCH ×2 (09:13→17:00)
[2018-11-15] MEDS: CALCIUM CARBONATE 500 MG TABLET PO SCH (09:14)
[2018-11-15] MEDS: DIVALPROEX SPRINKLE 125 MG CAP.SPRINK PO SCH ×3 (09:15→20:16)
[2018-11-15] MEDS: SERTRALINE HCL 50 MG TABLET PO SCH (12:12)
[2018-11-15 15:44] VITALS: BP 145/63
--- NOTE | 2018-11-15 16:01 | NUR ---
Gps/Customer Operations Associate- Stayed up on his chair for lunch, min/supervised with wheel chair transfer, safety reviewed and emphasized. No coughing noted, instructed to slow down during meals, tend to eat fast.
[2018-11-15] MEDS: INSULIN REGULAR, HUMAN 300 UNIT/3 ML VIAL SQ PRN (16:49)
--- NOTE | 2018-11-15 18:15 | NUR ---
Gps/Marine Mammal Trainer- Edilia( Daughter) called ,was able to talk to patient . Adequate information regarding his progress provided.
[2018-11-15 19:47] VITALS: BP 154/66
[2018-11-15] MEDS: risperiDONE 0.25 MG TABLET PO SCH (20:16)
[2018-11-15] MEDS: ATORVASTATIN 40 MG TABLET PO SCH (20:16)
[2018-11-15] MEDS: INSULIN REGULAR, HUMAN 300 UNITS/3 ML VIAL SQ PRN (20:18)
[2018-11-15] MEDS: INSULIN GLARGINE,HUM 300 UNITS/3 ML CARTRIDGE SQ SCH (20:19)
--- NOTE | 2018-11-15 20:50 | NUR ---
Received pt sleeping in bed. Aroused easily to verbal stimuli. Norwegian speaking. Able to make needs known. No acute distress noted. Denies pain/ discomfort. Denies SI. Meds given as ordered. Compliant with care. Safety measures maintained. Will continue to monitor.
[2018-11-16] MEDS: BLOOD SUGAR DIAGNOSTIC 1 EACH STRIP VI SCH ×4 (06:44→20:48)
--- NOTE | 2018-11-16 06:44 | NUR ---
Blood sugar this morning is 68. Cup of orange juice given. Upon recheck, blood sugar is 108. Will endorse accordingly to oncoming shift RN.
[2018-11-16 07:50] VITALS: BP 146/69
[2018-11-16] MEDS: DIVALPROEX SPRINKLE 125 MG CAP.SPRINK PO SCH ×3 (08:27→20:47)
[2018-11-16] MEDS: AMLODIPINE 5 MG TABLET PO SCH (08:27)
[2018-11-16] MEDS: CEphaleXIN 500 MG CAPSULE PO SCH ×2 (08:27→16:19)
[2018-11-16] MEDS: POLYVINYL ALCOHOL OPHT DROPS 15 ML BOTTLE EACHEYE SCH ×2 (08:28→16:23)
[2018-11-16] MEDS: CALCIUM CARBONATE 500 MG TABLET PO SCH (08:28)
[2018-11-16] MEDS: CARVEDILOL 3.125 MG TABLET PO SCH ×2 (08:29→17:02)
[2018-11-16] MEDS: INSULIN REGULAR, HUMAN 300 UNIT/3 ML VIAL SQ PRN ×2 (11:34→16:22)
[2018-11-16 15:10] VITALS: BP 145/72
--- NOTE | 2018-11-16 17:31 | NUR ---
PATIENT AOX1, CONFUSED , SPEAKING ONLY, PATIENT COMPLIANT WITH CARE AND MEDICATION DENIES ANY SI AND HI, ABLE TO EAT HIS DINNER
--- NOTE | 2018-11-16 20:00 | NUR ---
RECEIVED PATIENT IN HIS ROOM IN BED. HE IS NOTED AWAKE A/O X 1, CONFUSED AND FORGETFUL. HE DENIES SI, HE IS ABLE TO CFS. V/S STABLE AT THIS TIME. ACCU CHECK 232. SAFETY AND FALL PRECAUTION IN PLACE. PATIENT IS REASSURED FOR HIS SAFETY.
[2018-11-16 20:30] VITALS: BP 118/58
[2018-11-16] MEDS: risperiDONE 0.25 MG TABLET PO SCH (20:47)
[2018-11-16] MEDS: ATORVASTATIN 40 MG TABLET PO SCH (20:47)
[2018-11-16] MEDS: INSULIN REGULAR, HUMAN 300 UNITS/3 ML VIAL SQ PRN (21:01)
[2018-11-16] MEDS: INSULIN GLARGINE,HUM 300 UNITS/3 ML CARTRIDGE SQ SCH (21:02)
[2018-11-17] MEDS: BLOOD SUGAR DIAGNOSTIC 1 EACH STRIP VI SCH ×4 (06:46→20:58)
[2018-11-17 07:49] VITALS: BP 150/60
[2018-11-17] MEDS: DIVALPROEX SPRINKLE 125 MG CAP.SPRINK PO SCH ×3 (10:12→20:29)
[2018-11-17] MEDS: CARVEDILOL 3.125 MG TABLET PO SCH ×2 (10:12→17:28)
[2018-11-17] MEDS: AMLODIPINE 5 MG TABLET PO SCH (10:13)
[2018-11-17] MEDS: CALCIUM CARBONATE 500 MG TABLET PO SCH (10:13)
[2018-11-17] MEDS: POLYVINYL ALCOHOL OPHT DROPS 15 ML BOTTLE EACHEYE SCH ×2 (10:14→17:24)
[2018-11-17] MEDS: INSULIN REGULAR, HUMAN 300 UNIT/3 ML VIAL SQ PRN (12:04)
[2018-11-17 16:58] VITALS: BP 156/57
[2018-11-17 20:00] VITALS: BP 127/61
[2018-11-17] MEDS: risperiDONE 0.25 MG TABLET PO SCH (20:29)
[2018-11-17] MEDS: ATORVASTATIN 40 MG TABLET PO SCH (20:29)
[2018-11-17] MEDS: INSULIN GLARGINE,HUM 300 UNITS/3 ML CARTRIDGE SQ SCH (20:48)
[2018-11-17] MEDS: INSULIN REGULAR, HUMAN 300 UNITS/3 ML VIAL SQ PRN (20:51)
--- NOTE | 2018-11-18 00:01 | NUR ---
RECEIVED PATIENT AWAKE IN BED AND HE WAS MED COMPLIANT. HE IS APPEARS CONFUSED AND FORGETFUL.HE LATER USED THE URINAL AND DECIDED THAT HE WANTED TO DRINK HIS URINE THIS WILL HELP HIM SLEEP WELL.THE MONEGASQUE SPEAKING INTEGRITY SPECIALIST HAD TO DISSUADE HIM SEVERAL TIMES BEFORE HE AGREED NOT TO DO IT AND GAVE UP THE URINAL. BLOOD SUGAR CHECKS DONE AND INSULIN COVERAGE GIVEN PER SLIDING SCALE. NO HYPOGLYCEMIA NOTED AT THIS TIME. VISUAL CHECKS MADE ON HIM FOR SAFETY. WILL CONTINUE TO MONITOR.
--- NOTE | 2018-11-18 07:01 | NUR ---
SLEPT FOR APPROX.06;30HRS.BLOOD SUGAR CHECK IS 76
[2018-11-18] MEDS: BLOOD SUGAR DIAGNOSTIC 1 EACH STRIP VI SCH ×4 (07:04→20:14)
[2018-11-18 07:30] VITALS: BP 143/57
[2018-11-18] MEDS: DIVALPROEX SPRINKLE 125 MG CAP.SPRINK PO SCH ×3 (08:42→20:03)
[2018-11-18] MEDS: POLYVINYL ALCOHOL OPHT DROPS 15 ML BOTTLE EACHEYE SCH ×2 (08:42→16:25)
[2018-11-18] MEDS: AMLODIPINE 5 MG TABLET PO SCH (08:43)
[2018-11-18] MEDS: CARVEDILOL 3.125 MG TABLET PO SCH ×2 (08:43→17:12)
[2018-11-18] MEDS: CALCIUM CARBONATE 500 MG TABLET PO SCH (08:45)
[2018-11-18 12:43] LABS: EOSINOPHILS % (AUTO) 0.2 % (0.0-7.0); HEMOGLOBIN 14.3 g/dL (12.5-16.3); MEAN CORPUSCULAR VOLUME 91.9 fL (73.0-96.2); NEUTROPHILS # (AUTO) 8.5 K/uL (1.8-8.9)
[2018-11-18 12:54] LABS: BASOPHILS % (AUTO) 0.4 % (0.0-2.0); HEMATOCRIT 43.8 % (36.7-47.1); LYMPHOCYTES # (AUTO) 2.9 K/uL (20.0-40.0); LYMPHOCYTES % (AUTO) 23.5 % (20.5-51.5); MEAN CORPUSCULAR HEMOGLOBIN 30.1 uug (23.8-33.4); MEAN CORPUSCULAR HGB CONC 33 g/dL (32.5-36.3); MONOCYTES # (AUTO) 0.7 K/uL (2.0-10.0); MONOCYTES % (AUTO) 5.8 % (0.0-11.0); NEUTROPHILS % (AUTO) 70.1 % (38.5-71.5); PLATELET COUNT (AUTO) 204 K/uL (152-348); RED BLOOD CELL COUNT(AUTO) 4.76 MIL/uL (4.06-5.63); WHITE BLOOD COUNT (AUTO) 12.2 K/uL (3.6-10.2)
[2018-11-18 13:01] LABS: ALANINE AMINOTRANSFERASE 14 U/L (16-63); ALKALINE PHOSPHATASE 86 U/L (50-136); ASPARTATE AMINOTRANSFERASE 16 U/L (15-37); BILIRUBIN,TOTAL 0.4 mg/dL (0.2-1.0); CARBON DIOXIDE 25 mmol/L (21-32); CHLORIDE 101 mmol/L (98-107); CREATININE 1.5 mg/dL (0.6-1.3); GLUCOSE 268 mg/dL (74-106); POTASSIUM 4.7 mmol/L (3.5-5.1); TOTAL PROTEIN, SERUM 7.9 g/dL (6.4-8.2); UREA NITROGEN, BLOOD 38 mg/dL (7-18)
[2018-11-18 15:19] VITALS: BP 136/63
[2018-11-18] MEDS: INSULIN REGULAR, HUMAN 300 UNIT/3 ML VIAL SQ PRN (16:22)
[2018-11-18] MEDS: ATORVASTATIN 40 MG TABLET PO SCH (20:03)
[2018-11-18] MEDS: risperiDONE 0.25 MG TABLET PO SCH (20:03)
[2018-11-18] MEDS: INSULIN REGULAR, HUMAN 300 UNITS/3 ML VIAL SQ PRN (20:05)
[2018-11-18] MEDS: INSULIN GLARGINE,HUM 300 UNITS/3 ML CARTRIDGE SQ SCH (20:06)
[2018-11-18 20:12] VITALS: BP 177/77
[2018-11-18 20:57] VITALS: BP 140/60
[2018-11-19 05:41] LABS: *BILIRUBIN,URIN NEGATIVE (NEGATIVE); *CLARITY,URINE SLIGHTLY CLOUDY (CLEAR); *COLOR,URINE YELLOW (YELLOW); *KETONES,URINE TRACE (NEGATIVE); *UROBILINOGEN,URINE 0.2 E.U./dl (NORMAL); LEUKOCYTE ESTERASE ,URINE NEGATIVE (NEGATIVE); NITRITE, URINE POSITIVE (NEGATIVE); PH,URINE 5.5 (5.0-8.0); UGLUCOSE TRACE (NEGATIVE)
[2018-11-19 05:47] LABS: *BLOOD, URINE TRACE (NEGATIVE)
[2018-11-19 05:51] LABS: BACTERIA,URINE MANY /HPF (NONE SEEN); SQUAMOUS EPITHELIAL CELL,UR FEW /HPF (NONE SEEN)
--- NOTE | 2018-11-19 06:20 | NUR ---
PATIENT BLOOD GLUCOSE LEVEL IS 33, A REPEAT BG LEVEL IS 40. PATIENT IN NO DISTRESS. 240CC ORANGE JUICE WAS GIVEN. WILL MONITOR CLOSELY.
--- NOTE | 2018-11-19 06:45 | NUR ---
A REPEAT BLOOD GLUCOSE LEVEL IS 82. PATIENT SLEPT FOR APPROX 6.00 HRS THROUGH THE NIGHT. HIS URINE WAS SENT FOR URINALYSIS AND C/S WILL ENDORSE TO INCOMING SHIFT TO F/U ON RESULTS
[2018-11-19 07:30] VITALS: BP 169/76
[2018-11-19] MEDS: BLOOD SUGAR DIAGNOSTIC 1 EACH STRIP VI SCH ×4 (07:41→20:23)
[2018-11-19] MEDS: POLYVINYL ALCOHOL OPHT DROPS 15 ML BOTTLE EACHEYE SCH ×2 (08:58→17:02)
[2018-11-19] MEDS: AMLODIPINE 5 MG TABLET PO SCH (08:58)
[2018-11-19] MEDS: DIVALPROEX SPRINKLE 125 MG CAP.SPRINK PO SCH ×3 (08:58→20:04)
[2018-11-19] MEDS: CARVEDILOL 3.125 MG TABLET PO SCH ×2 (08:59→17:03)
[2018-11-19] MEDS: CALCIUM CARBONATE 500 MG TABLET PO SCH (08:59)
[2018-11-19] MEDS: INSULIN REGULAR, HUMAN 300 UNIT/3 ML VIAL SQ PRN ×2 (12:42→17:39)
[2018-11-19 15:21] VITALS: BP 163/68
[2018-11-19] MEDS: SULFAMETH/TRIMETH 800/160 MG TABLET PO SCH (15:22)
--- NOTE | 2018-11-19 15:31 | NUR ---
Pts received this morning, resting in bed. Pt assessed, no acute distress, no pain, and denies SI/HI, AH/VH at this time. Pt able to make needs known and CFS. Pt compliant with routine medications as ordered. BS prior to lunch of 329 covered with 12 units. Pt able to safely transfer from bed to wheelchair. Cooperative with therapies and care as offered. All comfort measures in place. Will continue to monitor for safety.
[2018-11-19] MEDS: ATORVASTATIN 40 MG TABLET PO SCH (20:03)
[2018-11-19] MEDS: risperiDONE 0.25 MG TABLET PO SCH (20:03)
[2018-11-19 20:13] VITALS: BP 156/57
[2018-11-19] MEDS: INSULIN GLARGINE,HUM 300 UNITS/3 ML CARTRIDGE SQ SCH (20:39)
[2018-11-20] MEDS: BLOOD SUGAR DIAGNOSTIC 1 EACH STRIP VI SCH ×4 (06:42→20:11)
[2018-11-20 07:30] VITALS: BP 148/62
[2018-11-20] MEDS: DIVALPROEX SPRINKLE 125 MG CAP.SPRINK PO SCH ×3 (08:40→20:16)
[2018-11-20] MEDS: CARVEDILOL 3.125 MG TABLET PO SCH ×2 (08:40→17:00)
[2018-11-20] MEDS: POLYVINYL ALCOHOL OPHT DROPS 15 ML BOTTLE EACHEYE SCH ×2 (08:40→16:10)
[2018-11-20] MEDS: AMLODIPINE 5 MG TABLET PO SCH (08:40)
[2018-11-20] MEDS: CALCIUM CARBONATE 500 MG TABLET PO SCH (08:41)
[2018-11-20] MEDS: INSULIN REGULAR, HUMAN 300 UNIT/3 ML VIAL SQ PRN ×3 (08:46→16:17)
[2018-11-20] MEDS: SULFAMETH/TRIMETH 800/160 MG TABLET PO SCH (15:16)
[2018-11-20 15:25] VITALS: BP 148/61
--- NOTE | 2018-11-20 17:05 | NUR ---
GPS: received patient AOx1, compliant with medication, able to do ADLs with minimal assist
[2018-11-20 19:56] VITALS: BP 128/58
[2018-11-20] MEDS: ATORVASTATIN 40 MG TABLET PO SCH (20:16)
[2018-11-20] MEDS: risperiDONE 0.25 MG TABLET PO SCH (20:16)
[2018-11-20] MEDS: INSULIN GLARGINE,HUM 300 UNITS/3 ML CARTRIDGE SQ SCH (20:18)
[2018-11-20] MEDS: INSULIN REGULAR, HUMAN 300 UNITS/3 ML VIAL SQ PRN (20:20)
--- NOTE | 2018-11-21 05:58 | NUR ---
Patient slept well total of 6.30 hours. No complaints made. No other untoward events noted. Compliant with medications.
[2018-11-21] MEDS: BLOOD SUGAR DIAGNOSTIC 1 EACH STRIP VI SCH ×2 (06:34→11:40)
--- NOTE | 2018-11-21 07:30 | NUR ---
RECIEVED PT LYING IN BED, SOUND ASLEEP BUT EASILY AROUSABLE. PT'S SBP IS IN THE 190/95. DENIES ANY HEADACHES. AFEBRILE. MEDICATION WITH HIS BP MEDS EARLIER THAN 0900. CRASHED AND MIXED WITH APPLE SAUCE. SWALLOW WELL.
[2018-11-21] MEDS: POLYVINYL ALCOHOL OPHT DROPS 15 ML BOTTLE EACHEYE SCH (07:49)
[2018-11-21] MEDS: DIVALPROEX SPRINKLE 125 MG CAP.SPRINK PO SCH (07:51)
[2018-11-21] MEDS: AMLODIPINE 5 MG TABLET PO SCH (07:51)
[2018-11-21] MEDS: CALCIUM CARBONATE 500 MG TABLET PO SCH (07:52)
[2018-11-21] MEDS: CARVEDILOL 3.125 MG TABLET PO SCH (07:52)
[2018-11-21 08:01] VITALS: BP 191/95
--- NOTE | 2018-11-21 09:30 | NUR ---
PT AMBULATED WITH PT WITH WALKER, COMPLIANT AND TOLERATING WELL. PT IS BEING DISCHARGED SCHEDULED AT 11;30 TO [facility]. NO APPARENT DISTRESS NOTED.
--- NOTE | 2018-11-21 09:47 | NUR ---
Discharge Note: Patient will be discharged back to facility [facility] [[facility], [address]; ]. Patient orange picking supervisor is arranged for today at 11:30 by facility Patient is A&Ox3 and denies suicidal ideation. Dressed Poultry Grader spoke with Amanda, Rigger Apprentice, who stated facility is ready to take patient. Patient aware and agreeable with discharge plan. Patients granddaughter Maddie Piedra [[phone]] is aware and agreeable with discharge plan. Patient will follow up with Dr. Juarez, Edging Machine Operator and Dr. Vale, Psychiatrist at [facility]. Patient was provided with [facility] mental health resources [facility] [[address], [place], [place]; [phone]]; [facility] Crisis Line ; and National Suicide Prevention Lifeline [ ].
[2018-11-21 11:00] VITALS: BP 175/77
[2018-11-21] MEDS ORDERED: CLONIDINE HCL 0.1 MG TABLET PO PRN (11:00)
[2018-11-21 11:25] VITALS: BP 175/77
[2018-11-21] MEDS: INSULIN REGULAR, HUMAN 300 UNIT/3 ML VIAL SQ PRN (11:38)
--- NOTE | 2018-11-21 12:30 | NUR ---
REPORT GIVEN TO CORTNEY MENDEZ. PT DISCHARGED WITH THE FACILITY TRANSPORT. PT'S NIECE IS AWARE. LATEST BP IS 142/74. CONDITION IS STABLE.
--- NOTE | 2018-11-21 13:30 | NUR ---
FAXED THE RESULT OF THE URINE SENSITIVITY TO CORTNEY WITH THE MD'S ORDER.
== END 2018-11-21 12:30 | DRG 881 ==
LOC: ER 16:22 → GPS 20:49
PROVIDERS: ADMIT Psychiatry & Neurology Psychosomatic Medicine; ATTEND Nurse Practitioner Acute Care
DX: F32.9 Major depressive disorder, single episode, unspecified (principal); F01.51 Vascular dementia, unspecified severity, with behavioral disturbance; N17.0 Acute kidney failure with tubular necrosis; E11.65 Type 2 diabetes mellitus with hyperglycemia; E44.0 Moderate protein-calorie malnutrition; N39.0 Urinary tract infection, site not specified; G93.40 Encephalopathy, unspecified; J44.9 Chronic obstructive pulmonary disease, unspecified; R13.11 Dysphagia, oral phase; R26.2 Difficulty in walking, not elsewhere classified; N40.0 Benign prostatic hyperplasia without lower urinary tract symptoms; E03.9 Hypothyroidism, unspecified; Z68.21 Body mass index [BMI] 21.0-21.9, adult; M50.30 Other cervical disc degeneration, unspecified cervical region; Z79.4 Long term (current) use of insulin; Z79.899 Other long term (current) drug therapy; Z87.440 Personal history of urinary (tract) infections; B96.1 Klebsiella pneumoniae [K. pneumoniae] as the cause of diseases classified elsewhere; D63.8 Anemia in other chronic diseases classified elsewhere; E83.42 Hypomagnesemia; E78.5 Hyperlipidemia, unspecified; M46.92 Unspecified inflammatory spondylopathy, cervical region; I25.10 Atherosclerotic heart disease of native coronary artery without angina pectoris; D50.9 Iron deficiency anemia, unspecified; M85.80 Other specified disorders of bone density and structure, unspecified site; I10 Essential (primary) hypertension
CPT/HCPCS: 36415; 70030-TC; 70450; 71045; 72125; 80164; 80307; 83605; 83735; 84100; 84443; 85025; 85730; 87040; 87077; 87086; 93005; 94664; A4663; G0480; G0480-TC; J1815